=== PATIENT | female | born 2000 | race Caucasian/White ===

== ENCOUNTER 2019-06-24 19:54 | Emergency (ER) | payer OTHER, SELFPAY ==
[2019-05-13 15:46] VITALS: BMI 29.0
[2019-06-24 19:55] VITALS: BP 147/94; PULSE 97; RESP 16; TEMP 36.6; O2SAT 100; BMI 26.5
--- NOTE | 2019-06-24 20:32 | CT_ITS ---
STUDY: CTA HEAD AND NECK WITH CONTRAST REASON FOR EXAM: Female, 19 years old. Dizziness, headache RADIATION DOSAGE (If Supplied By Facility): CTDIvol = ( 28.69 ) mGy, DLP = ( 1340.74 ) mGycm TECHNIQUE: CT angiography was performed with a multi-detector CT scanner. Data acquisition was obtained from the skull base through the vertex following intravenous administration of IV 100mL Isovue-370. MIP images were reconstructed from the axial data set. Post-processing of the angiographic images was performed, with multiplanar reformation and 3D reconstruction. Individualized dose optimization techniques were used for this CT. COMPARISON: No relevant priors. FINDINGS: Normal bilateral petrous carotid arteries. Normal right cavernous carotid artery with a normal supraclinoid bifurcation. Normal left cavernous carotid artery with a normal supraclinoid bifurcation. Normal right A1 segments of the anterior cerebral artery. Normal left A1 segments of the anterior cerebral artery. Normal intact anterior communicating artery (ACOM). Normal bilateral A2 segments of the anterior cerebral arteries. Normal right M1 and M2 segments of the middle cerebral arteries, with a normal M1 bifurcation. Normal left M1 and M2 segments of the middle cerebral arteries, with a normal M1 bifurcation. Normal right posterior communicating artery (PCOM). 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 Normal left vertebral artery. Hypoplastic right vertebral artery. Normal basilar artery with a normal basilar bifurcation. The visualized bilateral superior cerebellar (SCA) arteries are normal. Normal left posterior cerebral artery. 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 There is no demonstrated abnormality of the visualized brain. AORTIC ARCH: Normal visualized aortic arch. Normal origins of the brachiocephalic, left common carotid, and left subclavian arteries. RIGHT CAROTID ARTERIES: Normal right common carotid artery (CCA). Normal right common carotid bulb. Normal origin of the right internal carotid (ICA) artery without a hemodynamically significant stenosis. Normal visualized cervical portion of the right internal carotid artery. Normal origin of the right external carotid artery (ECA). LEFT CAROTID ARTERIES: Normal left common carotid artery (CCA). Normal left common carotid bulb. Normal origin of the left internal carotid (ICA) artery without a hemodynamically significant stenosis. Normal visualized cervical portion of the left internal carotid artery. Normal origin of the left external carotid artery (ECA). VERTEBRAL ARTERIES: Normal left vertebral artery. Diffusely hypoplastic right vertebral artery. 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 No evidence of aneurysm. No vascular dissection. Electronically Signed: Сергей Cardoza DO at 21:46 EST Tel [phone], Service support ,
[2019-06-24 20:55] VITALS: BP 136/99; BP 141/100; BP 143/113; PULSE 100; PULSE 108; PULSE 90
[2019-06-24] MEDS: 0.9% Normal Saline 1,000 ML 1000 ML IV (21:04)
[2019-06-24 21:27] LABS: Absolute Lymphocyte Count 2.75 X10^3/uL (0.83-4.51); Absolute Neutrophil Count 4.7 X10^3/uL (2.0-7.7); Basophil# 0.05 X10^3/uL; Basophil% 0.6 % (0-1); Eosinophil# 0.11 X10^3/uL; Eosinophils% 1.4 % (0-5); Hematocrit 42.3 % (37-47); Lymphocyte # 2.75 X10^3/ul (4.0); Lymphocyte % 33.9 % (19-41); Mean Corp Hgb Conc 33.1 g/dL (32-36); Mean Corpuscular Hgb 28.5 pg (27.0-32.0); Mean Corpuscular Volume 86.2 fL (81-99); Mean Platelet Vol. 10.4 fl (6.2-12.0); Monocyte# 0.49 X10^3/uL; NRBC Flagged by Analyzer 0 % (0-5); Neutrophil # 4.69 X10^3/uL (2.7-7.7); Neutrophil % 57.9 % (47-70); Platelet Count 270 K/mm3 (150-450); RBC Distribution Width CV 12.9 % (11.6-14.6); RBC Distribution Width SD 40.6 fl (35.1-43.9); Red Blood Count 4.91 M/mm3 (4.2-5.4); White Blood Count 8.1 K/mm3 (4.4-11.0)
[2019-06-24 21:51] LABS: Anion Gap 5 (5-15); BUN 13 mg/dL (7-18); Calcium,Total 9.1 mg/dL (8.5-10.1); Chloride 111 mmol/L (98-107); Creatinine, Serum 0.81 mg/dL (0.55-1.02); EST Glomerular Filtration Rate 95 mL/min (>60); Est Glom Filt Rate - Afr Amer 115 mL/min (>60); Estimated Creatinine Clearance 98.86 ml/min; Glucose 88 mg/dL (74-106); Sodium Level 143 mmol/L (136-145)
[2019-06-24 21:52] LABS: Internal QC Validated? YES +Cl - CLEAR BKGD; Pregnancy, Serum, hCG Quali. NEGATIVE Negative
--- NOTE | 2019-06-24 22:48 | ED.VISSUMM ---
- ER Visit Summary Date of Service: 06/24/19 Chief Complaint: [Headache and lightheadedness] History of Present Illness: The patient is a 19 F [presents the emergency department with symptoms that started this morning. Patient states that she was moving some boxes at work they were not very heavy and she developed some discomfort in the back of her neck. Patient states that she became pale and lightheaded and nauseated. Patient at the same time developed a headache that currently she rates a 6 out of 10. Involves the back of her head and is throbbing. She feels a lot of tension in her neck and back of the head. Patient has been intermittently lightheaded throughout the day. Patient does have history of migraines but does not have them very often. Patient's last menstrual period was 2 months ago and she takes an oral contraceptive that causes her to have periods only once every 3 months. There is a family history of brain aneurysm and at her aunt had a brain aneurysm. No history of brain tumors.] Physical Examination: [HEENT-PERRLA, EOMI. Cranial nerves II through XII grossly intact. TMs clear. Mucous membranes moist. No adenopathy. Cardiovascular-regular rate and rhythm without murmur or ectopy Lungs-clear to auscultation, chest wall stable without crepitus or subcu emphysema Abdomen-normoactive bowel sounds, soft, nontender, no rebound or rigidity, no peritoneal signs. Neuro syzw-dlwlln-ctnu and heel amaya testing within normal limits, negative Romberg, negative pronator drift, fundi benign Extremities-intact ?4, normal range of motion, normal pulses, atraumatic] Test Results: [CBC with differential obtained was normal. Chemistries normal. hCG was negative. CT of the head and neck was normal other than she had some hypoplastic vessels noted including proximal segment of the right posterior cerebral artery and left posterior communicating artery. There is no evidence of aneurysm or dissection.] Emergency Department Course and Treatment: [Patient had nebulized tablet she was given a liter of the same fluid bolus. Patient will be treated with Reglan, Benadryl, and Toradol.] Treatment Plan: [Follow up with primary care physician in 3 to 5 days.] Disposition: [Discharged home in stable condition.] Impression: [Cephalgia-suspect migraine Cervical strain] This note was generated with [employer] software. It may contain incorrect words, spelling, and punctuation that were not noted in review of the chart prior to signing ED Disposition - Plan for ED Patient: Referrals: Williams Strickland DO [Primary Care Provider] -
--- NOTE | 2019-06-24 22:52 | ED.DEP ---
ED Disposition - Plan for ED Patient: Instructions: DIZZINESS, Unk Cause, HEADACHE, Unspecified, Neck Sprain/Strain Referrals: Williams Strickland DO [Primary Care Provider] - 3-5 Days
[2019-06-24] MEDS: Ketorolac 30 MG/ML Syringe IV (22:56)
[2019-06-24] MEDS: DiphenhydrAMINE 50 MG/ML Syringe 25 MG IV (22:56)
[2019-06-24] MEDS: Metoclopramide 10 MG/2 ML Vial IV (22:57)
[2019-06-24 23:37] VITALS: BP 134/80; PULSE 80; PULSE 90; RESP 16; O2SAT 97; O2SAT 98
== END 2019-06-25 00:07 | disposition home or self-care (01) ==
LOC: ED 20:42
PROVIDERS: Emergency Provider Emergency Medicine; Family Provider Preventive Medicine Occupational Medicine; PCP Preventive Medicine Occupational Medicine
DX: R51 Headache (principal); S16.1XXA Strain of muscle, fascia and tendon at neck level, initial encounter; X50.3XXA Overexertion from repetitive movements, initial encounter; Y93.89 Activity, other specified; Y99.0 Civilian activity done for income or pay; Z82.49 Family history of ischemic heart disease and other diseases of the circulatory system
CPT/HCPCS: 70496; 70498; 80048; 84703; 85025; 96361; 96374; 96375; 99284; J7030; Q9967; A4216

== ENCOUNTER → 2019-08-13 | Outpatient (CLI) | payer BC, SELFPAY ==
[2019-08-13 12:08] VITALS: BMI 26.5
[2019-08-14 11:13] LABS: Chlamydia Trachomatis by PCR Negative (Negative); Neisserai gonorrhoeae by PCR Negative (Negative); Probe Check PASS; Sample Adequacy Control PASS; Specimen Processing Control PASS
[2019-08-16 13:38] LABS: HPV Reflexed? NOT INDICATED
== END | disposition home or self-care (01) ==
LOC: LABSPEC 12:57
PROVIDERS: PCP Preventive Medicine Occupational Medicine; Referring Provider Nurse Practitioner Women's Health; Visit Provider Nurse Practitioner Women's Health
DX: Z12.4 Encounter for screening for malignant neoplasm of cervix (principal)
CPT/HCPCS: 87491; 87591; 88175; G0145

== ENCOUNTER → 2020-10-07 | Outpatient (CLI) | payer BC, SELFPAY ==
[2020-10-07 09:57] VITALS: BMI 26.2
[2020-10-09 04:09] LABS: Chlamydia By Nucleic Acid AMP Negative (Negative)
[2020-10-09 05:11] LABS: Gonococcus By Nucleic Acid AMP Negative (Negative)
== END | disposition home or self-care (01) ==
LOC: LABSPEC 12:52
PROVIDERS: PCP Preventive Medicine Occupational Medicine; Visit Provider Nurse Practitioner Women's Health
DX: Z11.3 Encounter for screening for infections with a predominantly sexual mode of transmission (principal)
CPT/HCPCS: 87491; 87591

== ENCOUNTER 2021-10-12 09:29 | Outpatient (CLI) | payer BC, SELFPAY ==
[2021-10-12 22:07] LABS: Chlamydia By Nucleic Acid AMP Negative (Negative)
[2021-10-13 14:52] LABS: Gonococcus By Nucleic Acid AMP Negative (Negative)
== END 2021-10-12 23:59 | disposition home or self-care (01) ==
LOC: LABSPEC 09:30
PROVIDERS: PCP Preventive Medicine Occupational Medicine; Referring Provider Nurse Practitioner Women's Health; Visit Provider Nurse Practitioner Women's Health
DX: Z11.3 Encounter for screening for infections with a predominantly sexual mode of transmission (principal)
CPT/HCPCS: 87491; 87591

== ENCOUNTER → 2023-05-11 | Outpatient (CLI) | payer OTHER, SELFPAY ==
[2023-05-16 08:11] LABS: Chlamydia By Nucleic Acid AMP Negative (Negative); Gonococcus By Nucleic Acid AMP Negative (Negative)
== END | disposition home or self-care (01) ==
LOC: LABSPEC 14:26
PROVIDERS: PCP Preventive Medicine Occupational Medicine; Referring Provider Registered Nurse; Visit Provider Registered Nurse
DX: N93.9 Abnormal uterine and vaginal bleeding, unspecified (principal)
CPT/HCPCS: 87491; 87591

== ENCOUNTER → 2023-05-16 | Outpatient (CLI) | payer OTHER, SELFPAY ==
--- NOTE | 2023-05-16 16:51 | US_ITS ---
STUDY: ULTRASOUND TRANSVAGINAL CLINICAL: Female, 23 years old. abnormal uterine bleeding, heavy bleeding TECHNIQUE: Transvaginal COMPARISON: None. FINDINGS: Normal uterine size measuring 9.7 x 5.4 x 4.1 cm in maximal craniocaudal dimension. There are no myometrial masses. Normal endometrial thickness measuring 8 mm. There is a 1.5 cm echogenic mass within the endometrial cavity surrounded by fluid.. Normal uterine cervix. Normal right ovary, measuring 1.8 x 1.6 x 0.9 cm. There are multiple follicles without a dominant cyst. Normal left ovary, measuring 3.1 x 1.3 x 1.4 cm. There are multiple follicles without a dominant cyst. There is a small amount of free fluid in the pelvis. Polycystic ovary disease: No. US/Transvaginal Non- IMPRESSION: Suspect endometrial mass and endometrial fluid. Hysteroscopy may be useful. Electronically Signed: Bryan Montanez MD at 23:26 EDT ,
== END | disposition home or self-care (01) ==
LOC: US 16:51
PROVIDERS: PCP Preventive Medicine Occupational Medicine; Referring Provider Registered Nurse; Visit Provider Registered Nurse
DX: N93.9 Abnormal uterine and vaginal bleeding, unspecified (principal)
CPT/HCPCS: 76830

== ENCOUNTER 2023-07-25 10:43 | Day surgery (SDC) | payer OTHER, SELFPAY ==
[2023-07-24 15:24] LABS: Hematocrit 40.5 % (37-47); Hemoglobin 13.2 g/dL (12.0-15.0); Mean Corp Hgb Conc 32.6 g/dL (32-36); Mean Corpuscular Hgb 27.7 pg (27.0-32.0); Mean Corpuscular Volume 84.9 fL (81-99); Mean Platelet Vol. 10.5 fl (6.2-12.0); Platelet Count 260 K/mm3 (150-450); RBC Distribution Width CV 12.1 % (11.6-14.6); RBC Distribution Width SD 37.3 fl (35.1-43.9); Red Blood Count 4.77 M/mm3 (4.2-5.4); White Blood Count 7.6 K/mm3 (4.4-11.0)
--- NOTE | 2023-07-25 10:51 | PCM.HP.BLA ---
History and Physical Date of Admission: 07/25/23 Intake Vital Signs 05/25/2308:30 07/03/2314:03 07/03/2314:05 Height 5 ft 5 in 5 ft 5 in 5 ft 5 in Weight: 160 lb 8 oz BMI 26.6 BP 140/100 H Intake Visit Reasons: SURGICAL CONSULT [employer] Required: No Is patient in pain?: No Allergies No Known Allergies Allergy (Verified 07/03/23 14:03) Medications etonogestrel 0.12 mg-ethinyl estradiol 0.015 mg/24 hr vaginal ring (NuvaRing) 1 vag ring vaginal Q4W #3 ea 06/05/23 [Rx Confirmed 07/03/23] norethindrone (contraceptive) 0.35 mg tablet 0.35 mg PO DAILY #84 tabs 07/03/23 [Rx Confirmed 07/03/23] Post menopausal: No Patient : No : No PFS Surgical History History of hemorrhoidectomy History of tonsillectomy Family History Sister PCOS (polycystic ovarian syndrome) Social History adopted: No household members: family housing: house current occupational status: employed current occupation: [employer] in [place] current occupational exposures/hazards: No sexually active: Yes Smoking Status: Never smoker second hand exposure: Yes alcohol intake: never substance use type: does not use seatbelt use: always do you feel safe at home: Yes additional social history: single [facility] Details: SONIA TRIPATHI is a 23 year old G0 who presents for a surgical consultation for a uterine mass seen on ultrasound. She uses nuvaring and states that whenever she does anything physical she bleeds. She is hypertensive today and willing to stop her estrogen. ultrasound shows the following: INDINGS: Normal uterine size measuring 9.7 x 5.4 x 4.1 cm in maximal craniocaudal dimension. There are no myometrial masses. Normal endometrial thickness measuring 8 mm. There is a 1.5 cm echogenic mass within the endometrial cavity surrounded by fluid.. Normal uterine cervix. Normal right ovary, measuring 1.8 x 1.6 x 0.9 cm. There are multiple follicles without a dominant cyst. Normal left ovary, measuring 3.1 x 1.3 x 1.4 cm. There are multiple follicles without a dominant cyst. There is a small amount of free fluid in the pelvis. Polycystic ovary disease: No. US/Transvaginal Non- IMPRESSION: Suspect endometrial mass and endometrial fluid. Hysteroscopy may be useful. History 0 Elective abortions Hx Para Spontaneous abortions Hx # Term Pregnancies Ectopic pregnancies Hx # Pregnancies Multiple births # of living children ROS Const ROS Unobtainable: All systems reviewed & are unremarkable except as noted in H Resp Resp: Reports system reviewed and no additional complaints, except as documented; Denies cough GI GI: Reports as per HPI Psych Psych: Reports system reviewed and no additional complaints, except as documented Exam Const General: cooperative, healthy appearing, comfortable and no acute distress Resp Effort & Inspection: normal respiratory effort Skin General: no rashes or lesions noted Psych Appearance: grossly normal Speech and Movement: speech and movement normal Coding Level of Care Code Off vis,est,level 4 Diagnoses Elevated BP without diagnosis of hypertension R03.0 Abnormal uterine bleeding N93.9 Uterine mass N85.8 Assessment and Plan Assessment and Plan (1) Elevated BP without diagnosis of hypertension: Status: Acute Comment: will obtain blood pressure reading outside of office, if remains elevated will change to Progesterone only method. (2) Abnormal uterine bleeding: Status: Acute Comment: gc/ct testing-negative findings tvus- 1.5cm echogenic mass, likely polyp per consult with JV, will arrange surgical consult in office. continuous cycle of nuvaring. weight restriction 15lb until ultrasound obtained. (3) Uterine mass: Status: Acute Medications: New norethindrone (contraceptive) 0.35 mg PO DAILY 84 tabs 0RF Plan After discussing the patient's diagnosis and treatment plan options, patient wishes to proceed with surgical management. I have discussed with the patient the risks, benefits, and alternatives of the procedure which include but are not limited to risks of anesthesia, bleeding, infection, possible damage to bowel, bladder, or surrounding vasculature which could lead to additional surgery to evaluate any complications. Patient agrees to procedure and wishes to proceed. ACOG/uptodate references given for additional information regarding procedure. plan for hysteroscopy, symphion removal of uterine mass, and possible insertion of IUD if this ends up being a polyp. 07/25/2023 <Electronically signed by Tanika Montelongo DO>
[2023-07-25] MEDS: Lactated Ringers 1,000 ML 15 ML IV (11:16)
[2023-07-25 11:17] VITALS: BP 141/100; PULSE 101; RESP 18; TEMP 37.1; O2SAT 100; BMI 25.7
[2023-07-25 11:17] LABS: Internal QC Validated? YES +Cl - CLEAR BKGD; Pregnancy, Urine Negative Negative; Record Kit Lot#,Urine Preg HCG0000667200
--- OUTSIDE RECORDS SUMMARY | 2023-07-25 11:37 | XMS RPT_ITS | CCD ---
Author Name Unknown Address [address] [place] [address] Organization [facility] Care Team Providers Care Criminal Defense Attorney Name Role Phone JACINDA MULLER DO Primary Care Physician [phone] KAREY DUMONT Attending JACINDA Olguin DO Primary Care Unavailable SHARIF GRAVES PA-C Attending UnavailJACINDA Kimball DO Primary Care Unavailable Medications Current Medications Medication Drug Class(es) Dates Sig (Normalized) Sig (Original) Ashlyna oral tablet (2 sources) Start: 12-17-2019 take 1 tablet by mouth once daily Ashlyna oral tablet Dose = 1 tab(s), Oral, qDay, 0 Refill(s) Start Date: 12/17/19 Status: Ordered Hair, skin and Nails Multiple Vitamins with Minerals oral tablet (2 sources) Start: 09-16-2021 take 1 tablet by mouth once daily Hair, skin and Nails Multiple Vitamins with Minerals oral tablet Dose = 1 tab(s), Oral, qDay, 0 Refill(s) Start Date: 09/16/21 Status: Ordered Multivitamin preparation (2 sources) Start: 08-27-2021 take 1 tablet by mouth once daily Multivitamin Dose = 1 tab(s), Oral, Daily, 0 Refill(s) Start Date: 08/27/21 Status: Ordered Probiotic Formula (Bacillus Coagulans) oral capsule (2 sources) Start: 09-16-2021 take 1 capsule by mouth once daily Probiotic Formula (Bacillus Coagulans) oral capsule Dose = 1 cap(s), Oral, qDay, # 30 cap(s), 0 Refill(s) Start Date: 09/16/21 Status: Ordered Problems Problem Classification Problem Date Documented Da te Episodic/Chronic Hemorrhoids (2 sources) Hemorrhoids 08-25-2021 Episodic Other gastrointestinal disor ders (2 sources) Constipation 08-25-2021 Episodic Results Test Name Value Interpretation Reference Range Facil ity Vital Signs Date Time Vital Sign Value Performing Clinician Faci lity 09-20-2021 10:50-0500 Body temperature 97.52 [degF] SKYE ROBLEDO MD [facility] 09-20-2021 10:50-0500 Diastolic blood pressure 93 mm[Hg] SKYE ROBLEDO MD [facility] 09-20-2021 10:50-0500 Heart rate 84 /min SKYE ROBLEDO MD [facility] 09-20-2021 10:50-0500 Mean blood pressure 108 mm[Hg] SKYE ROBLEDO MD [facility] 09-20-2021 10:50-0500 Reason For Taking VItal Signs SKYE ROBLEDO MD [facility] 09-20-2021 10:50-0500 Respiratory rate 16 /min SKYE ROBLEDO MD [facility] 09-20-2021 10:50-0500 Systolic blood pressure 139 mm[Hg] SKYE ROBLEDO MD [facility] 09-20-2021 09:45-0500 Body temperature 97.52 [degF] SKYE ROBLEDO MD [facility] 09-20-2021 09:45-0500 Diastolic blood pressure 83 mm[Hg] SKYE ROBLEDO MD [facility] 09-20-2021 09:45-0500 Heart rate 84 /min SKYE ROBLEDO MD [facility] 09-20-2021 09:45-0500 Mean blood pressure 97 mm[Hg] KSYE ROBLEDO MD [facility] 09-20-2021 09:45-0500 Reason For Taking VItal Signs SKYE ROBLEDO MD [facility] 09-20-2021 09:45-0500 Respiratory rate 16 /min SKYE ROBLEDO MD [facility] 09-20-2021 09:45-0500 Systolic blood pressure 124 mm[Hg] SKYE ROBLEDO MD [facility] 09-20-2021 09:01-0500 Heart rate 80 /min SKYE ROBLEDO MD [facility] 09-20-2021 08:45-0500 Diastolic Blood Pressure NBP 91 1 SKYE ROBLEDO MD [facility] 09-20-2021 08:45-0500 Heart rate 70 /min SKYE ROBLEDO MD [facility] 09-20-2021 08:45-0500 Respiratory rate 16 /min SKYE ROBLEDO MD [facility] 09-20-2021 08:45-0500 Systolic Blood Pressure NBP 127 1 SKYE ROBLEDO MD [facility] 09-20-2021 08:30-0500 Diastolic Blood Pressure NBP 92 1 SKYE ROBLEDO MD [facility] 09-20-2021 08:30-0500 Systolic Blood Pressure NBP 132 1 SKYE ROBLEDO MD [facility] 09-20-2021 08:17-0500 Body temperature 97.52 [degF] SKYE ROBLEDO MD [facility] 09-20-2021 08:17-0500 Diastolic Blood Pressure NBP 71 1 SKYE ROBLEDO MD [facility] 09-20-2021 08:17-0500 Mean blood pressure 79 mm[Hg] SKYE ROBLEDO MD [facility] 09-20-2021 08:17-0500 Systolic Blood Pressure NBP 105 1 SKYE ROBLEDO MD [facility] 09-20-2021 07:55-0500 Body temperature 86.81 [degF] SKYE ROBLEDO MD [facility] 09-20-2021 07:50-0500 Body temperature 90.45 [degF] SKYE ROBLEDO MD [facility] 09-20-2021 07:45-0500 Body temperature 90.75 [degF] SKYE ROBLEDO MD [facility] 09-20-2021 06:25-0500 Body height 165.1 cm SKYE ROBLEDO MD [facility] 09-20-2021 06:25-0500 Body weight 70.7 kg SKYE ROBLEDO MD [facility] 09-20-2021 06:25-0500 Body weight 25.94 kg/m2 SKYE ROBLEDO MD [facility] 09-20-2021 06:25-0500 Diastolic blood pressure 90 mm[Hg] SKYE ROBLEDO MD [facility] 09-20-2021 06:25-0500 Heart rate 78 /min SKYE ROBLEDO MD [facility] 09-20-2021 06:25-0500 Mean blood pressure 103 mm[Hg] SKYE ROBLEDO MD [facility] 09-20-2021 06:25-0500 Systolic blood pressure 130 mm[Hg] SKYE ROBLEDO MD [facility] 09-16-2021 14:37-0500 Body height 165.1 cm SKYE ROBLEDO MD [facility] 09-16-2021 14:37-0500 Body weight 72.7 kg SKYE ROBLEDO MD [facility] Encounters Encounter Date Encounter Type Care Provider Facility Start: 01-24-2023 End: 01-24-2023 ambulatory SHARIF GRAVES PA-C Facility:A Start: 03-18-2022 End: 03-18-2022 ambulatory KAREY PEREZ APRN-[employer]ING [employer]ATE [employer]TER Facility:A Start: 10-05-2021 End: 10-05-2021 Patient encounter procedure SKYE ROBLEDO MD [facility] Start: 09-20-2021 End: 09-20-2021 SAME DAY STAY SKYE ROBLEDO MD [facility] Procedures Date Procedure Procedure Detail Performing Clinician Start: 09-20-2021 Hemorrhoidectomy LEANDRA ROBLEDO MD Immunizations Immunization Date Immunization Notes Care Provider Alton dahl 02-18-2016 meningococcal polysaccharide (groups A, C, Y and W-135) diphtheria toxoid conjugate vaccine (MCV4P) SKYE ROBLEDO MD [facility] 05-02-2011 meningococcal polysaccharide (groups A, C, Y and W-135) diphtheria toxoid conjugate vaccine (MCV4P) SKYE ROBLEDO MD [facility] 05-02-2011 tetanus toxoid, redu augusta diphtheria toxoid, and acellular pertussis vaccine, adsorbed SKYE ROBLEDO MD [facility] 04-07-2003 measles/mumps/rubell a virus vaccine SKYE ROBLEDO MD [facility] 04-07-2003 poliovirus vaccine, inactivated SKYE ROBLEDO MD [facility] 06-16-1999 measles/mumps/rubell a virus vaccine SKYE ROBLEDO MD [facility] 1998 haemophilus influenz ae type b vaccine, HbOC conjugate SKYE ROBLEDO MD [facility] 1998 hepatitis B pediatri c vaccine SKYE ROBLEDO MD [facility] 1998 haemophilus influenz ae type b vaccine, PRP-OMP conjugate SKYE ROBLEDO MD [facility] 1998 poliovirus vaccine, inactivated SKYE ROBLEDO MD [facility] 1998 haemophilus influenz ae type b vaccine, PRP-OMP conjugate SKYE ROBLEDO MD [facility] 1998 poliovirus vaccine, inactivated SKYE ROBLEDO MD [facility] 1998 hepatitis B pediatri c vaccine SKYE ROBLEDO MD [facility] 1998 hepatitis B pediatri c vaccine SKYE ROBLEDO MD [facility] Payers Date Payer Category Payer Unknown [id number] 2000 Unknown [id number] 2000 Unknown [id number] Social History Date Type Detail Facility Start: 12-17-2019 Never smoked t obacco (finding) [facility] Sex Assigned At Female [facility] Discharge instructions 09-20-2021 Note Date & Type Note Facility 09-20-2021 Hospital Discharg e instructions Patient Education 09/20/2021 10:30:17 -[facility] Discharge Instructions Template (04/2018) ([facility]) [place] SAME DAY SURGERY DISCHARGE INSTRUCTIONS PLEASE FOLLOW THE INSTRUCTIONS BELOW MARKED WITH AN X: _x_ Regular Diet: Start with clear liquids, then soup and crackers and gradually add other foods. ___ Drink extra fluids. ___ Special Diet Instructions: ___ ACTIVITY: ___ Avoid stress to suture line. Since you have had an anesthetic, it would be advisable not to drive, drink alcohol, or make major decisions over the next 24 hours. You may require more rest tonight and tomorrow. ___ May resume regular activity as tolerated. ___ Restrict activity as follows: ___ ___ Walk Only ___ ___ Do not go up and down stairs. ___ Do not ride in car until ___ ___ Do not drive car. ___ Do not have sexual intercourse. _x__ No heavy lifting, pushing or straining. _x__ Other: _Follow all written and verbal instructions per Dr. Alcaraz.__ BATHING/SHOWERING: ___ Sponge bathe until office visit. ___ Sitting in tub of warm water may relieve discomfort. ___ May tub bathe _x__ May shower in 48 hours. ___ On day after surgery sit in tub of warm water to soak off dressing. DRESSING: ___ Keep operative area dry and clean for ___ ___ Check the operative area for signs of bleeding. Apply pressure to the bleeding site if necessary and call your physician. ___ Change dressing as necessary using sterile dressing material or bandaid. ___ Reinforce dressing as necessary. ___ Change and care for wound as follows: ___ ___ Wear bra for ___ days following breast surgery for comfort. ___ Change drip pad as needed. ___ Wear scrotal support for comfort. WATCH FOR SIGNS OF INFECTION: (Usually appears 36-48 hours after surgery) Increased temperature (101 degrees Fahrenheit or higher) Redness or swelling Increased pain Foul odor or drainage. If you have any questions, please call your doctor at the number listed on your follow up instructions. Follow all instructions given to you by your physician. Please complete and return the survey you will be receiving in the mail to help us better serve our patients. Form: 1522 ([id number]) R: 10/2309/20/2021 10:30:17 Surgical Procedures for Hemorrhoids, Care After Surgical Procedures for Hemorrhoids, Care After This sheet gives you information about how to care for yourself after your procedure. Your health care provider may also give you more specific instructions. If you have problems or questions, contact your health care provider. What can I expect after the procedure? After the procedure, it is common to have: Rectal pain. Pain when you are having a bowel movement. Slight rectal bleeding. This is more likely to happen with the first bowel movement after surgery. Follow these instructions at home: Medicines Take kvmk-nwf-hzorsrl and prescription medicines only as told by your health care provider. If you were prescribed an antibiotic medicine, use it as told by your health care provider. Do not stop using the antibiotic even if your condition improves. Ask your health care provider if the medicine prescribed to you requires you to avoid driving or using heavy machinery. Use a stool softener or a bulk laxative as told by your health care provider. Eating and drinking Follow instructions from your health care provider about what to eat or drink after your procedure. You may need to take actions to prevent or treat constipation, such as: ?Drink enough fluid to keep your urine pale yellow. ?Take sqxh-kea-fhmgcxt or prescription medicines. ?Eat foods that are high in fiber, such as beans, whole grains, and fresh fruits and vegetables. ?Limit foods that are high in fat and processed sugars, such as fried or sweet foods. Activity Rest as told by your health care provider. Avoid sitting for a long time without moving. Get up to take short walks every 1 2 hours. This is important to improve blood flow and breathing. Ask for help if you feel weak or unsteady. Return to your normal activities as told by your health care provider. Ask your health care provider what activities are safe for you. Do not lift anything that is heavier than 10 lb (4.5 kg), or the limit that you are told, until your health care provider says that it is safe. Do not strain to have a bowel movement. Do not spend a long time sitting on the toilet. General instructions Take warm sitz baths for 15 20 minutes, 2 3 times a day to relieve soreness or itching and to keep the rectal area clean. Apply ice packs to the area to reduce swelling and pain. Do not drive for 24 hours if you were given a sedative during your procedure. Keep all follow-up visits as told by your health care provider. This is important. Contact a health care provider if: Your pain medicine is not helping. You have a fever or chills. You have bad smelling drainage. You have a lot of swelling. You become constipated. You have trouble passing urine. Get help right away if: You have very bad rectal pain. You have heavy bleeding from your rectum. Summary After the procedure, it is common to have pain and slight rectal bleeding. Take warm sitz baths for 15 20 minutes, 2 3 times a day to relieve soreness or itching and to keep the rectal area clean. Avoid straining when having a bowel movement. Eat foods that are high in fiber, such as beans, whole grains, and fresh fruits and vegetables. Take eneg-bvq-kpsmtym and prescription medicines only as told by your health care provider. This information is not intended to replace advice given to you by your health care provider. Make sure you discuss any questions you have with your health care provider. Document Released: 09/22/2004 Document Revised: 12/18/2019 Document Reviewed: 05/21/2019 [employer] Patient Education 2020 [employer] Follow Up Care 09/07/2021 10:32:52 With:SKYE ALCARAZ JR, MD, Surgery Address: [phone] When: Unknown Comments:Please make a follow up appointment if one has not been made. [facility] Evaluation + Plan note Note Date & Type Note Facility Evaluation + Plan note No data available for this section [facility] Hospital Discharge instructions Note Date & Type Note Facility Hospital Discharge instructions No data available for this section [facility] Summary Purpose Family History No Family History Records Found Advance Directives No Advanced Directives Records Found Additional Source Comments INFORMATION SOURCE (unrecogn ized section and content) FOR RECORDS PERTAINING TO PATIENTS WHO ARE OR HAVE BEEN ENROLLED IN A CHEMICAL DEPENDENCY/SUBSTANCEABUSE PROGRAM, SOME INFORMATION MAY BE OMITTED. This clinical summary was aggregated from multiple sources. Caution should be exercised in using it in the provision of clinical care. This summary normalizes information from multiple sources, and as a consequence, information in this document may materially change the coding, format and clinical context of patient data. In addition, data may be omitted in some cases. CLINICAL DECISIONS SHOULD BE BASED ON THE PRIMARY CLINICAL RECORDS. [employer] provides no warranty or guarantee of the accuracy or completeness of information in this document.
--- NOTE | 2023-07-25 12:10 | EMB_PTH ---
PATHOLOGY RESULTS PATIENT: SONIA TRIPATHI LOC: [facility] [place] U#:[id number] AGE/SX: 23/F ROOM: RE07/25/[address]: Dr. Tanika Montelongo DO : 2000 BED: DIS: 07/25/2023 SPEC #: [id number] RECD: 07/26/23 07:26 STATUS: KADI OG #: [id number] MENG: 07/25/23 12:[address]: Tanika Montelongo DEPT: SURGICAL PATHOLOGY RECD BY: Leslie Ashley ENTERED: 07/26/23 07:26 SP TYPE: ENDOM BX/C ERIC DR: MD Dr. Williams Mcbride DO Tissues: Endometrium, NOS Procedures: Surgery Specimen Level IV HEADER OPERATION: Hysteroscopy, D & C Symphion PRE-OP DIAGNOSIS: Abnormal uterine bleeding, uterine mass TISSUE SUBMITTED: Endometrial curettings MICROSCOPIC DIAGNOSIS Endometrium, curettings: Polypoid fragments of benign endocervical tissue with mild chronic inflammation. Rare strips of benign superficial endometrium. Fragments of benign myometrial tissue. AM:vin 07/27/2023 MICROSCOPIC DESCRIPTION Slides are reviewed. GROSS DESCRIPTION Received in fixative is one container labeled with the patient's name and designated endometrial curettings. The specimen consists of multiple irregular fragments of garza soft tissue mixed with mucoid tissue that in aggregate measure 5.5 x 3.0 x 0.2 cm. The entire specimen is submitted in three cassettes. / JACQUELINE:vin 07/26/2023 TC:5 CPT: 33611
--- NOTE | 2023-07-25 12:10 | DCINST_ITS ---
Discharge Instructions Diet Discharge Diet: No restrictions Activity Discharge Activity: Return to Normal Activity, May Shower and May Take a Tub Bath (after 1 week) May resume sexual activity in: 1-2 weeks Weight Bearing Status: Weight bearing as tolerated Lifting Restrictions: none Dressing / Incision Call your doctor if you observe: Fever of 101 or Higher, Using more than 1 pad per hour, Shortness of breath and Uncontrolled pain Follow Up Care Please Follow Up With: Tanika Montelongo DO When: Call [phone] to schedule appointment. Test Results: Test results from this visit will be discussed in further detail at your follow- up appointment, if applicable. Discharge Plan Admission Primary Reason for Your Visit: husteroscopy D&C Attending Provider: Tanika Montelongo Primary Care Provider: Williams Strickland Consulting Providers: Cornell Epstein Discharge Orders/Prescriptions Prescriptions: New naproxen 500 mg tablet 500 mg PO BID PRN (Reason: pain) Qty: 20 0RF Continued norethindrone (contraceptive) [Sharobel] 0.35 mg tablet 0.35 mg PO DAILY Discontinued etonogestrel-ethinyl estradiol [NuvaRing] 0.12-0.015 mg/24 hr ring 1 vag ring vaginal Q4W Qty: 3 5RF Rx Instructions: leave in place for 3 weeks of a 4-week cycle Referrals / Follow Up: Williams Strickland DO [Primary Care Provider] - Disposition Disposition (needs filled in before D/C Order can be placed): Home, Self Care
[2023-07-25] MEDS: Lidocaine 1% (20 ml mdv) 20 ML Vial (12:35)
--- NOTE | 2023-07-25 12:44 | OP.PCM_ITS ---
Problems Associated Problem List Diagnoses (1) Uterine mass: (2) Abnormal uterine bleeding: Report of Operation Date of Procedure: 07/25/23 Pre-Operative Diagnosis: abnormal uterine bleeding, ultrasound finding of endometrial mass Post-Operative Diagnosis: abnormal uterine bleeding, ultrasound finding of endometrial mass Surgery/Procedure Performed:: hysteroscopy dilation and symphion guided curettage Description of Surgical Findings:: small polyps around the tubal ostia bilaterally, cervicouterine junction polyp like structures. Surgeon: Tanika Montelongo windows 7 deployment lead: None Type of Anesthesia: MAC/Supplemental/Local Anesthesiologist: Jef Farias Specimen's removed: endometrial curettings Drains: none Estimated Blood Loss (mL): 5cc Description of Procedure: Patient was prepped and draped in a normal sterile fashion under MAC anesthesia. A weighted speculum was placed in the vagina and the anterior lip of the cervix was grasped with a single-tooth tenaculum. A paracervical block was placed with 1% lidocaine. Cervix was progressively dilated to allow passage of a 5 mm hysteroscope. The lining was fully visualized and noted to have some small polyps surrounding both tubal ostia and at the uterocervical junctio . Uterine sounded to 9 cm. Curettage was performed using the symphion device and the specimen was sent to pathology. All instruments were removed from the vagina and excellent hemostasis was noted. Patient was awoken and taken to recovery in stable condition. Procedure Start Time: 12:30 Procedure Stop Time: 12:42 Complications none Admit VTE Documentation VTE Mechan Device Prophylaxis: SCD's VTE Pharm Prophylaxis ordered?: No Multi Select Codes Urinary/Genital Urinary/Genital CPT Codes: 51449 Hysteroscopy,EMC, Polypectomy
[2023-07-25 12:56] VITALS: BP 133/99; BP 141/100; PULSE 81; RESP 16; TEMP 36.8; O2SAT 100
[2023-07-25 13:00] VITALS: BP 123/109; BP 141/100; PULSE 84; RESP 16; O2SAT 100
[2023-07-25 13:16] VITALS: BP 119/99; BP 141/100; PULSE 89; RESP 16; TEMP 36.3; O2SAT 93
[2023-07-25 13:55] VITALS: BP 141/100
== END 2023-07-25 13:57 | disposition home or self-care (01) ==
LOC: SDC 10:44 → AC 10:45
PROVIDERS: Anesthesiology; PCP Preventive Medicine Occupational Medicine; Referring Provider Obstetrics & Gynecology; Visit Provider Obstetrics & Gynecology
PROC: 0UB98ZZ Excision of Uterus, Via Natural or Artificial Opening Endoscopic (ICD-10-PCS; CPT 58558; principal; 2023-07-25 11:55)
DX: N85.01 Benign endometrial hyperplasia (principal); N93.9 Abnormal uterine and vaginal bleeding, unspecified; R03.0 Elevated blood-pressure reading, without diagnosis of hypertension
CPT/HCPCS: 58558; 00952; 36415; 81025; 85027; 86850; 86900; 86901; 88305; J7120; J2405

== ENCOUNTER → 2023-11-30 | Outpatient (CLI) | payer OTHER, SELFPAY ==
--- NOTE | 2023-11-30 14:18 | US_ITS ---
INDICATION: dating EXAMINATION: Ultrasound US OB Transvaginal TECHNIQUE: Transvaginal (for optimal evaluation of the adnexa) pelvic ultrasound was performed. Grayscale, spectral waveform, and color flow Doppler evaluation of the adnexa. COMPARISON: None. LMP: [Unknown Beta-hCG: Unknown FINDINGS: UTERUS: 10.5 x 6.8 x 5.8 cm. RIGHT OVARY: 3.4 x 1.7 x 1.3 cm. Normal. LEFT OVARY: 3.5 x 2.7 x 2.2 cm. Normal. FREE FLUID: None. INTRAUTERINE GESTATIONAL SAC: Single. Mean sac diameter 2.4 cm. YOLK SAC: Identified POLE: Identified CRL 1.1 cm. ESTIMATED GESTATION AGE: 7 weeks 2 days. HEART MOTION: 127 bpm. PLACENTA: Not visualized due to age. SUBCHORIONIC HEMORRHAGE: None. AMNIOTIC FLUID: Qualitatively normal. US/Transvaginal w/Preg US IMPRESSION: Single live intrauterine . Estimated gestational age is 7 weeks 2 days with SUREKHA 07/16/2024. Electronically Signed: Artur Rojas MD at 23:41 EDT ,
== END | disposition home or self-care (01) ==
LOC: US 14:17
PROVIDERS: PCP Preventive Medicine Occupational Medicine; Referring Provider Obstetrics & Gynecology; Visit Provider Obstetrics & Gynecology
DX: Z34.90 Encounter for supervision of normal pregnancy, unspecified, unspecified trimester (principal)
CPT/HCPCS: 76817

== ENCOUNTER → 2023-12-20 | Outpatient (CLI) | payer OTHER, SELFPAY ==
[2023-12-20 16:34] LABS: Absolute Lymphocyte Count 2.21 X10^3/uL (0.83-4.51); Absolute Neutrophil Count 4.9 X10^3/uL (2.0-7.7); Basophil# 0.04 X10^3/uL; Basophil% 0.5 % (0-1); Eosinophil# 0.14 X10^3/uL; Eosinophils% 1.8 % (0-5); Hematocrit 36.2 % (37-47); Hemoglobin 12.2 g/dL (12.0-15.0); Lymphocyte # 2.21 X10^3/ul (0.83-4.51); Lymphocyte % 28.3 % (19-41); Mean Corp Hgb Conc 33.7 g/dL (32-36); Mean Corpuscular Hgb 28.2 pg (27.0-32.0); Mean Corpuscular Volume 83.6 fL (81-99); Mean Platelet Vol. 10.2 fl (6.2-12.0); Monocyte# 0.45 X10^3/uL; Monocyte% 5.8 % (0-10); NRBC Flagged by Analyzer 0 % (0-5); Neutrophil # 4.94 X10^3/uL (2.7-7.7); Neutrophil % 63.2 % (47-70); Platelet Count 224 K/mm3 (150-450); RBC Distribution Width CV 13.5 % (11.6-14.6); RBC Distribution Width SD 41.5 fl (35.1-43.9); Red Blood Count 4.33 M/mm3 (4.2-5.4); White Blood Count 7.8 K/mm3 (4.4-11.0)
[2023-12-20 18:11] LABS: HIV - WCH Non-Reactive (Nonreactive); Hepatitis B Surface Antigen Non-Reactive (Nonreactive); Hepatitis C Antibody Non-Reactive (Nonreactive); Rubella IgG Reactive (Nonreactive); Syphilis Antibodies Non-reactive
[2023-12-23 06:10] LABS: Chlamydia By Nucleic Acid AMP Negative (Negative); Gonococcus By Nucleic Acid AMP Negative (Negative)
[2023-12-26 17:11] LABS: HPV Reflexed? NOT INDICATED
== END | disposition home or self-care (01) ==
PROVIDERS: PCP Preventive Medicine Occupational Medicine; Referring Provider Obstetrics & Gynecology; Visit Provider Obstetrics & Gynecology
DX: Z12.4 Encounter for screening for malignant neoplasm of cervix (principal); O09.90 Supervision of high risk pregnancy, unspecified, unspecified trimester; Z3A.00 Weeks of gestation of pregnancy not specified; Z82.79 Family history of other congenital malformations, deformations and chromosomal abnormalities; Z83.49 Family history of other endocrine, nutritional and metabolic diseases
CPT/HCPCS: 36415; 81220; 85025; 86703; 86762; 86780; 86803; 86850; 86900; 86901; 87086; 87088; 87340; 87491; 87591; 88175; G0145

== ENCOUNTER → 2024-03-08 | Outpatient (CLI) | payer OTHER, SELFPAY ==
--- NOTE | 2024-03-08 08:03 | US_ITS ---
HISTORY: anatomy scan. TECHNIQUE: Transabdominal pelvic ultrasound was performed. 114 images. COMPARISON: 11/30/2023. FINDINGS: INTRAUTERINE GESTATION(s): Single. PRESENTATION: Cephalic. HEART MOTION: 137 bpm. PLACENTA: Posterior, grade 0. No placenta previa. CERVIX: 4.2 cm long and closed. AMNIOTIC FLUID: Maximum vertical pocket 3.5 x 4.1 cm. biometry- BIPARIETAL DIAMETER: 5.1 cm, corresponding to 21 weeks 3 days. HEAD CIRCUMFERENCE: 19 cm, corresponding to 21 weeks 2 days. ABDOMINAL CIRCUMFERENCE: 15.9 cm, corresponding to 21 weeks 0 days. FEMUR LENGTH: 3.5 cm, corresponding to 21 weeks 1 day. ESTIMATED GESTATIONAL AGE: 21 weeks 1 day. ESTIMATED DUE DATE (SUREKHA): 07/18/2024. ESTIMATED WEIGHT: 403 g corresponding to 30th percentile ANATOMY: Anterior and posterior cranial fossa, nose/lips, facial profile, spine, bilateral upper and lower extremities, four-chamber heart, cord insertion, stomach, kidneys, and bladder visualized. IMPRESSION: Single living intrauterine with an estimated gestational age of 21 weeks 1 day. Unremarkable anatomic survey. Electronically Signed: Effie Jorge MD at 12:47 EDT , HISTORY: anatomy scan. TECHNIQUE: Transvaginal pelvic ultrasound was performed. 114 images. COMPARISON: 11/30/2023. FINDINGS: INTRAUTERINE GESTATION(s): Single. PRESENTATION: Cephalic. HEART MOTION: 137 bpm. PLACENTA: Posterior, grade 0. No placenta previa. CERVIX: 4.2 cm long and closed. AMNIOTIC FLUID: Maximum vertical pocket 3.5 x 4.1 cm. biometry- BIPARIETAL DIAMETER: 5.1 cm, corresponding to 21 weeks 3 days. HEAD CIRCUMFERENCE: 19 cm, corresponding to 21 weeks 2 days. ABDOMINAL CIRCUMFERENCE: 15.9 cm, corresponding to 21 weeks 0 days. FEMUR LENGTH: 3.5 cm, corresponding to 21 weeks 1 day. ESTIMATED GESTATIONAL AGE: 21 weeks 1 day. ESTIMATED DUE DATE (SUREKHA): 07/18/2024. ESTIMATED WEIGHT: 403 g corresponding to 30th percentile ANATOMY: Anterior and posterior cranial fossa, nose/lips, facial profile, spine, bilateral upper and lower extremities, four-chamber heart, cord insertion, stomach, kidneys, and bladder visualized. US/OB Anatomy w/ Transvaginal
== END | disposition home or self-care (01) ==
PROVIDERS: PCP Preventive Medicine Occupational Medicine; Referring Provider Obstetrics & Gynecology; Visit Provider Obstetrics & Gynecology
DX: O09.90 Supervision of high risk pregnancy, unspecified, unspecified trimester (principal)
CPT/HCPCS: 76805; 76817

== ENCOUNTER → 2024-04-23 | Outpatient (CLI) | payer OTHER, SELFPAY ==
[2024-04-23 16:08] LABS: Absolute Neutrophil Count 8.9 X10^3/uL (2.0-7.7); Basophil# 0.06 X10^3/uL; Basophil% 0.5 % (0-1); Eosinophil# 0.12 X10^3/uL; Hematocrit 33.7 % (37-47); Hemoglobin 11.3 g/dL (12.0-15.0); Lymphocyte % 17.1 % (19-41); Mean Corp Hgb Conc 33.5 g/dL (32-36); Mean Corpuscular Hgb 29.7 pg (27.0-32.0); Mean Corpuscular Volume 88.7 fL (81-99); Mean Platelet Vol. 10.2 fl (6.2-12.0); Monocyte# 0.55 X10^3/uL; Monocyte% 4.7 % (0-10); NRBC Flagged by Analyzer 0 % (0-5); Neutrophil # 8.88 X10^3/uL (2.7-7.7); Neutrophil % 75.9 % (47-70); Platelet Count 223 K/mm3 (150-450); RBC Distribution Width SD 42.2 fl (35.1-43.9); White Blood Count 11.7 K/mm3 (4.4-11.0)
[2024-04-23 16:34] LABS: Glucose Challenge Gest 1H 50g 108 mg/dL (70-140)
[2024-04-23 17:04] LABS: HIV - WCH Non-Reactive (Nonreactive); Syphilis Antibodies Non-reactive
== END | disposition home or self-care (01) ==
LOC: LABSPEC 15:27
PROVIDERS: PCP Preventive Medicine Occupational Medicine; Referring Provider Obstetrics & Gynecology; Visit Provider Obstetrics & Gynecology
DX: O09.90 Supervision of high risk pregnancy, unspecified, unspecified trimester (principal); O26.899 Other specified pregnancy related conditions, unspecified trimester; Z67.91 Unspecified blood type, Rh negative; Z13.1 Encounter for screening for diabetes mellitus; Z3A.00 Weeks of gestation of pregnancy not specified
CPT/HCPCS: 36415; 82950; 85025; 86703; 86780; 86850; 86900; 86901

== ENCOUNTER → 2024-06-19 | Outpatient (CLI) | payer OTHER, SELFPAY | END | disposition home or self-care (01) | LOC: LABSPEC 16:26 | PROVIDERS: PCP Preventive Medicine Occupational Medicine; Referring Provider Obstetrics & Gynecology; Visit Provider Obstetrics & Gynecology | DX: O09.93 Supervision of high risk pregnancy, unspecified, third trimester (principal); Z3A.00 Weeks of gestation of pregnancy not specified | CPT/HCPCS: 87077; 87081; 87186 ==

== ENCOUNTER 2024-07-23 19:12 | Inpatient (IN) | payer OTHER, SELFPAY ==
[2024-07-23 19:10] VITALS: BMI 35.6
[2024-07-23 19:34] VITALS: BP 121/72; BP 128/66; PULSE 81; PULSE 91; RESP 18; TEMP 37; O2SAT 98
[2024-07-23 20:14] LABS: Absolute Lymphocyte Count 2.23 X10^3/uL (0.83-4.51); Basophil# 0.04 X10^3/uL; Basophil% 0.3 % (0-1); Eosinophil# 0.09 X10^3/uL; Eosinophils% 0.7 % (0-5); Hematocrit 31.8 % (37-47); Hemoglobin 10.5 g/dL (12.0-15.0); Lymphocyte # 2.23 X10^3/ul (0.83-4.51); Mean Corpuscular Hgb 27.6 pg (27.0-32.0); Mean Corpuscular Volume 83.5 fL (81-99); Mean Platelet Vol. 11.3 fl (6.2-12.0); Monocyte% 4.6 % (0-10); NRBC Flagged by Analyzer 0 % (0-5); Neutrophil # 10.01 X10^3/uL (2.7-7.7); Neutrophil % 76.6 % (47-70); Platelet Count 207 K/mm3 (150-450); RBC Distribution Width CV 13.6 % (11.6-14.6); Red Blood Count 3.81 M/mm3 (4.2-5.4); White Blood Count 13.1 K/mm3 (4.4-11.0)
[2024-07-23] MEDS: miSOPROStol 25 MCG TABLET PO (20:48)
[2024-07-23 21:06] VITALS: BP 121/72; PULSE 81; RESP 15; TEMP 36.7; O2SAT 98
[2024-07-23 22:32] LABS: Syphilis Antibodies Non-reactive
[2024-07-24] VITALS (40 sets, daily range): BP systolic 107–142; BP diastolic 61–95; PULSE 64–102; RESP 14–20; TEMP 36.1–36.8; O2SAT 91–100
[2024-07-24] MEDS: Lactated Ringers 1,000 ML 999 ML IV (01:07)
[2024-07-24] MEDS: fentaNYL-bupivacaine (epidural) 100 ML BAG EPIDURAL ×2 (01:40→07:03)
[2024-07-24] MEDS: Oxytocin 15 Units/NS 250ml 15 UNITS/250 ML IV.SOLN 2 UNITS IV (01:50)
[2024-07-24] MEDS: Lactated Ringers 1,000 ML 50 ML IV (02:13)
[2024-07-24] MEDS: Ondansetron 4 MG/2 ML Vial IV ×2 (03:07→08:26)
[2024-07-24] MEDS: Penicillin G Pot 5,000,000 UNITS in 0.9% Normal Saline (100mL MB+) 100 ML 150 UNITS IV (03:08)
[2024-07-24] MEDS: Penicillin G 3,000,000 Units 50 ML 100 UNITS IV (07:09)
[2024-07-24] MEDS: Lactated Ringers 1,000 ML 200 ML IV (08:00)
[2024-07-24] MEDS: Calcium Carbonate 500 MG Tablet 1000 MG PO (09:03)
--- NOTE | 2024-07-24 09:55 | HP.PCM.OB_ITS ---
HPI - General General Date of Admission: 07/23/24 HPI Narrative SONIA TRIPATHI, is a 24 F who presents for IOL secondary to postdates no vb lof good fm no regular ctx Maternal Data Information SUREKHA Calculator Estimated Delivery Date Method Current WG Current Estimate 07/16/24 Ultrasound #1 41w 1d PFSH PFSH Medical History Hypertension Non-smoker Uterine mass Abnormal uterine bleeding Home Medications ?Medication ?Instructions ?Recorded ?Last Taken ?Type PNV 153-FA 400 mcg-om3 35 mg-dha tab PO 12/15/23 Unknown History 25 mg-epa 5 mg-fish oil chew tablet Hydrocortisone 2.5%/lidocaine 5% #30 ea 03/25/24 Unknown Rx suppository (cmpd) hydrocortisone 2.5 % topical cream 1 applic HI QD-BID PRN hemorrhoids 03/25/24 Unknown Rx with perineal applicator #30 grams (Proctozone-HC) promethazine 12.5 mg tablet 12.5 mg PO Q6H PRN nausea and 06/03/24 Unknown Rx vomiting #10 tabs Allergy/AdvReac Type Severity Reaction Status Date / Time acetaminophen (From Vicodin) AdvReac Intermediate Nausea/Vom/ Verified 07/16/24 14:47 Diarrhea hydrocodone (From Vicodin) AdvReac Intermediate Nausea/Vom/ Verified 07/16/24 14:47 Diarrhea Family History Sister PCOS (polycystic ovarian syndrome) Surgical History Status post dilation and curettage [place] teeth extracted Status post hysteroscopy (~07/25/23) History of hemorrhoidectomy History of tonsillectomy Social History adopted: No household members: significant other housing: house current occupational status: employed current occupation: [employer] in [place] current occupational exposures/hazards: No pets and animals: Yes (Avoid litterbox) pets and animals: cat(s) and dog(s) history of recent travel: No sexually active: Yes Smoking Status: Never smoker alcohol intake: never substance use type: does not use well-balanced diet: daily or most days caffeine: No eating out: 1-3 times/week during the past year weight has: remained stable what type of physical activity do you participate in: none jarrell/sabianism: Mu-Ism seatbelt use: always do you feel safe at home: Yes additional social history: Javid Significant other History 1 Elective abortions Hx Para 0 Spontaneous abortions Hx # Term Pregnancies Ectopic pregnancies Hx # Pregnancies Multiple births # of living children Visit Details Expected Delivery Route/Plan Labor Preferences- CB/BF classes: discussed, considering labor support person: Javid labor intervention preferences: [] pain management options preferred: [] cut cord/dad catch: [] : [] PP control planned: [] discussed possible routes of delivery and associated risks: [] special requests: [] Plans Covid status: [] Flu vaccine: declined Tdap vaccine: declined Rhogam: 04/23 LARC form signed: declined movement and labor precautions reviewed. Problem list reviewed and updated with the most current plan of care details and appropriate orders placed. Relevant counseling for the gestational age provided. Continue routine care and follow up unless otherwise noted in visit notes/problem list details OB Flowsheet Initial Weight: Not Recorded Date -?-?-?-?-?-?-?-?-?-?-?-?- EGA Weight BP Urine Prot -?-?-?--?-?-?-?-?-?-?-?-?- Glucose FHR FuHt Pres Dilation -?-?-?-?-?-?-?-?-?--?-?-?- Effaced St Visit Note 12/20/23 -?-?-?-?-?-?-?-?-?-?-?-?- 10w 1d 167 lb 119/86 -?-?-?-?-?-?-?-?-?-?-?-?- 167 -?-?-?-?-?-?-?-?-?-?-?-?- SM- CRL 3 cm con s with LMP 01/23/24 -?-?-?-?-?-?-?-?-?-?-?-?- 15w 0d 174 lb 118/77 -?-?-?-?-?-?-?-?-?-?-?-?- 145 -?-?-?-?-?-?-?-?-?-?-?-?- SM- no vb crampi ng boy! 03/01/24 -?-?-?-?-?-?-?-?-?-?-?-?- 20w 3d 176 lb 8 oz 131/90 Nega tive -?-?-?-?-?-?-?-?-?-?-?-?- Negative 168 -?-?-?-?-?-?-?-?-?-?-?-?- KW- no vb/crampi ng. good fm. concerns with large hemorrhoids, not yet thrombosed but has had to have surgical intervention in the past. Has tried home treatments with minimal relief, requesting surgical consult. 03/27/24 -?-?-?-?-?-?-?-?--?-?-?-?- 24w 1d 187 lb 120/81 Negative -?-?-?-?-?-?-?-?-?-?-?-?- Negative 146 25 -?-?-?-?-?-?-?-?-?-?-?-?- JV- no lof, vagi nal bleeding, and ++ FM. plan rhogam and glucola. 04/23/24 -?-?-?-?-?-?-?-?-?-?-?-?- 28w 0d 192 lb 132/87 -?-?-?-?-?-?-?-?-?-?-?-?- 140 29 -?-?-?-?--?-?-?-?-?-?-?-?- SM- SM- no vb lof good fm no reg ualr ctx labs drawn 05/08/24 -?-?-?-?-?-?-?-?-?-?-?-?- 30w 1d 195 lb 127/81 Negative -?-?-?-?-?-?-?-?-?-?--?-?- Negative -?-?-?-?-?-?-?-?-?-?-?-?- SM- no vb llof g ood fm no regular ctx 05/21/24 -?-?-?-?-?-?-?-?-?-?-?-?- 32w 0d 198 lb 8 oz 117/84 Nega tive -?-?-?-?-?-?-?-?-?-?-?-?- Negative 140 32 -?-?-?-?-?-?-?-?-?-?-?-?- KW- no vb/lof/ct x. good fm. some dizziness and lightheadedness at work- compression hose 06/03/24 -?-?-?-?-?-?-?-?-?-?-?-?- 33w 6d 202 lb 4 oz 118/82 Nega tive -?-?-?-?-?-?-?-?-?-?-?-?- Negative 146 34 -?-?-?-?-?-?-?-?-?-?-?-?- MH-No VB, LOF. G ood FM. Has had cramping and nausea last couple of days. No vomiting, fever, diarrhea. More fatigue. Reassured. Phenergan, force fluids an d rest. Reviewed S&S PTL, etc to call 06/19/24 -?-?-?-?-?-?-?-?-?-?-?-?- 36w 1d 209 lb 4 oz 128/84 -?-?-?-?-?-?-?-?-?-?-?-?- 135 38 Cephalic 0.5 -?-?-?-?-?-?-?-?-?-?-?-?- SM- SM- no vb lof good fm nor eu lar ctx gbs done growth US ordered 06/26/24 -?-?-?-?-?-?-?-?-?-?-?-?- 37w 1d 214 lb 4 oz 128/85 Nega tive -?-?-?-?-?-?-?-?-?-?-?-?- Negative 140 37 Cephalic 0 .5 -?-?-?-?-?-?-?-?-?-?-?-?- KV- no lof, vagi nal bleeding, or dec fm. ultrasound never called her about her scan. recommend that she call them tomorrow. 07/01/24 -?-?-?-?-?-?-?-?-?-?-?-?- 37w 6d 212 lb 114/81 Negative -?-?-?-?-?-?-?-?-?-?-?-?- Negative 140 37 Cephalic 1 -?-?-?-?-?-?-?-?-?-?-?-?- 50 -2 KW- no vb/ lof/ ctx. good fm. 07/08/24 -?-?-?-?-?-?-?-?-?-?-?-?- 38w 6d 214 lb 123/85 Negative -?-?-?-?-?-?-?-?-?-?-?-?- Negative 125 38 Cephalic 1 -?-?-?-?-?-?-?-?-?-?-?-?- SM- no vb lof go od fm no regular ctx 07/16/24 -?-?-?-?-?-?-?-?-?-?-?-?- 40w 0d 210 lb 6 oz 122/90 Nega tive -?-?-?-?-?-?-?-?-?-?-?-?- Negative 125 39 Cephalic 1 -?-?-?-?-?-?-?-?-?-?-?-?- 40 -2 KW- no vb/ lof/ctx. good fm. cytotec IOL set up for 41 weeks. Vital Signs Vital Signs Vital Signs: 07/23/24 19:34 07/23/24 19:34 07/23/24 19:34 Temperature Temperature Source Temporal Pulse Rate 81 Respiratory Rate Blood Pressure 121/72 H BP Systolic 121 BP Diastolic 72 Pulse Ox 07/23/24 19:34 07/23/24 19:34 07/23/24 19:34 Temperature 98.6 F Temperature Source Pulse Rate Respiratory Rate 18 Blood Pressure BP Systolic BP Diastolic Pulse Ox 98 07/23/24 19:34 07/23/24 19:34 07/23/24 19:34 Temperature Temperature Source Temporal Pulse Rate 91 Respiratory Rate Blood Pressure 128/66 H BP Systolic 128 BP Diastolic 66 Pulse Ox 07/23/24 19:34 07/23/24 19:34 07/23/24 19:34 Temperature 98.6 F Temperature Source Pulse Rate Respiratory Rate 18 Blood Pressure BP Systolic BP Diastolic Pulse Ox 98 07/23/24 19:34 07/23/24 19:34 07/23/24 19:34 Temperature Temperature Source Temporal Pulse Rate 91 Respiratory Rate Blood Pressure 128/66 H BP Systolic 128 BP Diastolic 66 Pulse Ox 07/23/24 19:34 07/23/24 19:34 07/23/24 19:34 Temperature 98.6 F Temperature Source Pulse Rate Respiratory Rate 18 Blood Pressure BP Systolic BP Diastolic Pulse Ox 98 07/23/24 21:06 07/23/24 21:06 07/23/24 21:06 Temperature Temperature Source Temporal Pulse Rate 81 Respiratory Rate Blood Pressure 121/72 H BP Systolic 121 BP Diastolic 72 Pulse Ox 07/23/24 21:06 07/23/24 21:06 07/23/24 21:06 Temperature 98.0 F Temperature Source Pulse Rate Respiratory Rate 15 Blood Pressure BP Systolic BP Diastolic Pulse Ox 98 07/24/24 01:22 07/24/24 01:22 07/24/24 01:22 Temperature Temperature Source Pulse Rate 76 Respiratory Rate Blood Pressure 138/87 H BP Systolic 138 BP Diastolic 87 Pulse Ox 95 07/24/24 01:23 07/24/24 01:23 07/24/24 01:23 Temperature 97.5 F L Temperature Source Temporal Pulse Rate Respiratory Rate 20 H Blood Pressure BP Systolic BP Diastolic Pulse Ox 07/24/24 01:23 07/24/24 01:23 07/24/24 01:24 Temperature 97.5 F L Temperature Source Pulse Rate 76 Respiratory Rate 20 H Blood Pressure BP Systolic BP Diastolic Pulse Ox 07/24/24 01:24 07/24/24 01:27 07/24/24 01:27 Temperature Temperature Source Pulse Rate 95 Respiratory Rate Blood Pressure BP Systolic BP Diastolic Pulse Ox 91 100 07/24/24 01:28 07/24/24 01:28 07/24/24 01:28 Temperature Temperature Source Pulse Rate 98 Respiratory Rate 19 H Blood Pressure 142/95 H BP Systolic 142 BP Diastolic 95 Pulse Ox 07/24/24 01:32 07/24/24 01:32 07/24/24 01:33 Temperature Temperature Source Pulse Rate 74 Respiratory Rate Blood Pressure 129/83 H BP Systolic 129 BP Diastolic 83 Pulse Ox 100 07/24/24 01:33 07/24/24 01:33 07/24/24 01:38 Temperature Temperature Source Pulse Rate 72 Respiratory Rate 16 15 Blood Pressure BP Systolic BP Diastolic Pulse Ox 07/24/24 01:39 07/24/24 01:39 07/24/24 01:40 Temperature Temperature Source Pulse Rate 70 77 Respiratory Rate Blood Pressure 114/73 BP Systolic 114 BP Diastolic 73 Pulse Ox 07/24/24 01:40 07/24/24 01:43 07/24/24 01:43 Temperature Temperature Source Pulse Rate 77 Respiratory Rate Blood Pressure 115/67 BP Systolic 115 BP Diastolic 67 Pulse Ox 99 07/24/24 01:43 07/24/24 01:45 07/24/24 01:45 Temperature Temperature Source Pulse Rate 89 Respiratory Rate 17 Blood Pressure BP Systolic BP Diastolic Pulse Ox 99 07/24/24 01:48 07/24/24 01:49 07/24/24 01:49 Temperature Temperature Source Pulse Rate 75 Respiratory Rate 14 Blood Pressure 124/79 H BP Systolic 124 BP Diastolic 79 Pulse Ox 07/24/24 01:50 07/24/24 01:50 07/24/24 01:53 Temperature Temperature Source Pulse Rate 64 Respiratory Rate Blood Pressure 107/61 BP Systolic 107 BP Diastolic 61 Pulse Ox 99 07/24/24 01:53 07/24/24 01:53 07/24/24 01:55 Temperature Temperature Source Pulse Rate 75 69 Respiratory Rate 16 Blood Pressure BP Systolic BP Diastolic Pulse Ox 07/24/24 01:55 07/24/24 01:57 07/24/24 01:58 Temperature Temperature Source Pulse Rate Respiratory Rate 19 H Blood Pressure 116/69 BP Systolic 116 BP Diastolic 69 Pulse Ox 98 07/24/24 01:58 07/24/24 02:42 07/24/24 02:42 Temperature Temperature Source Pulse Rate 95 67 Respiratory Rate Blood Pressure 119/64 BP Systolic 119 BP Diastolic 64 Pulse Ox 07/24/24 02:42 07/24/24 02:43 07/24/24 02:43 Temperature Temperature Source Temporal Pulse Rate Respiratory Rate 16 Blood Pressure BP Systolic BP Diastolic Pulse Ox 99 07/24/24 02:43 07/24/24 03:49 07/24/24 03:49 Temperature 97.5 F L Temperature Source Pulse Rate 74 Respiratory Rate Blood Pressure 123/72 H BP Systolic 123 BP Diastolic 72 Pulse Ox 07/24/24 03:49 07/24/24 03:49 07/24/24 03:49 Temperature Temperature Source Temporal Pulse Rate Respiratory Rate 18 Blood Pressure BP Systolic BP Diastolic Pulse Ox 100 07/24/24 03:49 07/24/24 05:12 07/24/24 05:12 Temperature 97.3 F L Temperature Source Pulse Rate 87 Respiratory Rate Blood Pressure 121/77 H BP Systolic 121 BP Diastolic 77 Pulse Ox 07/24/24 05:12 07/24/24 05:12 07/24/24 05:12 Temperature Temperature Source Temporal Pulse Rate 102 H Respiratory Rate 18 Blood Pressure BP Systolic BP Diastolic Pulse Ox 07/24/24 05:12 07/24/24 05:12 07/24/24 06:10 Temperature 98.0 F Temperature Source Pulse Rate Respiratory Rate Blood Pressure 116/67 BP Systolic 116 BP Diastolic 67 Pulse Ox 100 07/24/24 06:10 07/24/24 06:10 07/24/24 06:10 Temperature Temperature Source Pulse Rate 67 65 Respiratory Rate Blood Pressure BP Systolic BP Diastolic Pulse Ox 98 07/24/24 06:10 07/24/24 06:10 07/24/24 06:10 Temperature 97.7 F L Temperature Source Temporal Pulse Rate Respiratory Rate 17 Blood Pressure BP Systolic BP Diastolic Pulse Ox 07/24/24 07:18 07/24/24 07:18 07/24/24 07:18 Temperature Temperature Source Temporal Pulse Rate 79 Respiratory Rate Blood Pressure 129/77 H BP Systolic 129 BP Diastolic 77 Pulse Ox 07/24/24 07:18 07/24/24 07:18 Temperature 96.9 F L Temperature Source Pulse Rate Respiratory Rate 16 Blood Pressure BP Systolic BP Diastolic Pulse Ox Weight Weight: 214 lb 3.2 oz Body Mass Index (BMI) 35.6 Labs Labs Labs: Blood Type A NEGATIVE Antibody Screen NEGATIVE Hct 31.8 % (37-47) L Hgb 10.5 g/dL (12.0-15.0) L Obstetrics Ultrasound Syphilis Total Ab Non-reactive Rubella IgG Antibody Reactive (Nonreactive) Hep Bs Antigen Non-Reactive (Nonreactive) Hepatitis C Antibody Non-Reactive (Nonreactive) Chlamydia DNA (SAI) Negative (Negative) N.gonorrhoeae DNA (SAI) Negative (Negative) HIV 1&2 Antibody Non-Reactive (Nonreactive) Glucose 1 Hr 50 gm 108 mg/dL (70-140) Miscellaneous Test Assessment & Plan (1) GBS (group B Streptococcus carrier), +RV culture, currently : COMMENT: PCN in labor (2) External hemorrhoid: COMMENT: failed home treatments, requesting surgical consult (3) Rh negative status during : QUALIFIERS: Trimester: third trimester Qualified Code(s): O26.893 - Other specified related conditions, third trimester; Z67.91 - Unspecified blood type, Rh negative COMMENT: rhogam if bleeding or at 28 weeks. (4) FHx: Down's syndrome: COMMENT: nephew(Sisters son) (5) FH: cystic fibrosis: COMMENT: cousin (6) Supervision of high-risk : QUALIFIERS: Trimester: third trimester Qualified Code(s): O09.93 - Supervision of high risk , unspecified, third trimester COMMENT: PRR , SUREKHA 07/16/24, boy Dequan Hua (7) : QUALIFIERS: Weeks of gestation: 40 weeks Qualified Code(s): Z3A.40 - 40 weeks gestation of COMMENT: LR NIPT, declined carrier and ntd, nl anatomy PLAN: Plan induction of labor overnight with cytotec
--- NOTE | 2024-07-24 09:59 | OB.VAGDELI_ITS ---
Assessment & Plan (1) Vaginal delivery: COMMENT: SM IOL postdates 41 boy shadi Maternal Data Information SUREKHA Calculator Estimated Delivery Date Method Current WG Current Estimate 07/16/24 Ultrasound #1 41w 1d Vaginal Delivery Maternal Presentation Maternal Presentation: see assessment and plan Vaginal Delivery Information Procedure Performed: Spontaneous Vaginal Delivery Surgeon/Practitioner: Harmony Neumann Pre-Procedure Diagnosis: see assessment and plan Post-Procedure Diagnosis: same Type of anesthesia: Epidural Estimated Blood Loss: 200 Findings Description of procedure: Patient began pushing and delivered the head in the KALEY presentation. The head was delivered atraumatically and a loose nuchal cord ?1 was identified and easily reduced over the infant's head. The anterior and posterior shoulders delivered without complication followed by the rest of the and the was placed on the maternal abdomen. Delayed cord clamping was employed for approximately 60 seconds. Cord was clamped and cut and gentle traction was applied to the cord and the placenta delivered spontaneously immediately following it was noted to be intact with three-vessel cord. The perineum and vagina were inspected and was noted to have a second -degree laceration that was repaired in the usual fashion with 3-0 vicryl rapide . EBL was 200. Patient and tolerated delivery well. Presentation: Vertex Placental Delivery Description: Spontaneous Specimen collected: Yes Description of specimen(s) removed: placenta Senior Communications Engineer siphon operator: No Post Vaginal Deli Medications given after delivery: Other (pitocin) Complication Complications: No Multi Select Codes Urinary/Genital Urinary/Genital CPT Codes: 85272 Vaginal Delivery [facility]
--- NOTE | 2024-07-24 10:01 | DCINST_ITS ---
Discharge Instructions Diet Discharge Diet: No restrictions DC O2, CPAP, BIPAP needs Home O2 Discharge instructions: No Dressing / Incision Discharge Activity: Return to Normal Activity, May Not Drive (while taking narcotic pain medications.) and May Shower May resume sexual activity in: 4-6 weeks Dressing / Incision Call your doctor if your incision/area has: Continuous Slow Oozing, Sudden Increased Bleeding, Increased Pain/ Swelling, Increased Redness and Foul Smelling Discharge Follow Up Care Please Follow Up With: Harmony Neumann MD When: Call [phone] to make an appointment with your doctor in 6 weeks. If you had elevated blood pressure or 4th degree laceration, you will need to be seen in 2 weeks. Test Results: Test results from this visit will be discussed in further detail at your follow- up appointment, if applicable. Discharge Plan Admission Admit Date/Time: 07/23/24 19:12 Attending Provider: Harmony Neumann Primary Care Provider: Williams Strickland Discharge Orders/Prescriptions Prescriptions: No Action PNV no.[id number] 400 mcg-35 mg- 25 mg-5 mg tablet,chewable PO hydrocortisone [Proctozone-HC] 2.5 % cream with perineal applicator 1 applic NM QD-BID PRN (Reason: hemorrhoids) Qty: 30 0RF (DME) Hydrocortisone 2.5%/lidocaine 5% suppository (cmpd) Suppository See Rx Instructions .Route Qty: 30 1RF Rx Instructions: insert rectally twice dailiy promethazine 12.5 mg tablet 12.5 mg PO Q6H PRN (Reason: nausea and vomiting) Qty: 10 0RF Referrals / Follow Up: Williams Strickland DO [Primary Care Provider] -
--- NOTE | 2024-07-24 10:18 | NURSING ---
At 0840 when patient was complete, Dr Neumann did not feel an amniotic sac, and the patient had not been ruptured up to this point and no fluid noted on her pads or prior to recieving report at 0715. Planned to have Peds at delivery due to uncertainty of fluid color. After delivery of , there was no amniotic fluid noted by RN and physician. Placenta did not appear to have meconium staining on it. Fluid color left blank on delivery summary note for this reason as there was not any at delivery or prior to. Discussed with Dr. Neumann to document time of rupture at the time patient was found to be complete, 0840 07/24/2024.
[2024-07-24] MEDS: Oxytocin 15 Units/NS 250ml 15 UNITS/250 ML IV.SOLN 83 UNITS IV (10:20)
--- NOTE | 2024-07-24 10:24 | NURSING ---
Today at 0840 when patient was completely dilated, Dr. Neumann noted there was not an amniotic sac and up to this point there was no documented time of rupture of membranes (patient was intact as per previous RN at report at 0715). Pads were all dry from report to time patient was called complete by the Physician. Planned to have peds at delivery due to uncertainty of amniotic fluid color. After delivery of , Dr. Neumann did not visualize any amniotic fluid. The side of placenta was not meconium stained. After discussion plan was to call rupture time at 0840 when she was found to be completely dilated and to document no amniotic fluid (no color was documented as well).
[2024-07-24] MEDS: Rho(D) Immune Globulin 300 MCG (1500 Unit) Syringe IV (20:35)
[2024-07-25 03:09] VITALS: BP 129/89; PULSE 90; RESP 16; TEMP 36.1
[2024-07-25 07:54] VITALS: BP 119/61; PULSE 79; RESP 16; TEMP 36.6; O2SAT 96
[2024-07-25] MEDS: Senna/Docusate Sodium 1 Tablet PO (07:58)
[2024-07-25] MEDS: Acetaminophen 500 MG Tablet 1000 MG PO (07:58)
--- NOTE | 2024-07-25 08:06 | PCM.PN.OB ---
Subjective Subjective Patient doing well without complaints. Tolerating PO. Ambulating and voiding without difficulty. Denies chest pain, shortness of breath, calf pain/swelling, fevers, chills, lightheadedness. Baby is struggling to feed. Objective Data Objective Data Vital Signs: Vital Signs Temp Pulse Resp BP Pulse Ox O2 Del Method 97.9 F 79 16 119/61 96 Room Air 07/25/24 07:54 07/25/24 07:54 07/25/24 07:54 07/25/24 07:54 07/25/24 07:54 07/25/24 07:54 Oxygen Delivery Method Room Air Weight: 214 lb 3.2 oz Body Mass Index (BMI) 35.6 Intake & Output: Intake and Output for Last 24 Hours 07/23/24 07/24/24 07/25/24 23:59 23:59 23:59 Intake Total 3654.00 / 3654.00 Output Total 1800 / 1800 Balance 1854.00 / 1854.00 Lab / Micro Data 07/23/24 20:00 Labs: Laboratory Results - last 24 hr 07/24/24 12:22: Screen NEGATIVE, Baby's Blood Type A POSITIVE, Baby's CHRISTIANE NEGATIVE Physical Exam Const alert and oriented x3 HEENT normocephalic Eyes PERRL Neck full ROM Resp normal respiratory effort GI soft to palpation GI Narrative: FF below U Assessment & Plan (1) Vaginal delivery: COMMENT: SM IOL postdates 41 boy shadi (2) Rh negative status during : QUALIFIERS: Trimester: third trimester Qualified Code(s): O26.893 - Other specified related conditions, third trimester; Z67.91 - Unspecified blood type, Rh negative COMMENT: rhogam if bleeding or at 28 weeks. PLAN: Plan s/p PPD # 1 1. routine post delivery care 2. breast feeding- support given 3. rh negative 4. rubella immune
[2024-07-25] MEDS: Benzocaine/Lanolin/Aloe Vera 85 GM Spray 1 SPRAY TOPICAL (08:13)
[2024-07-25] MEDS: Naproxen 500 MG Tablet PO (14:45)
[2024-07-25 14:51] VITALS: BP 114/94; PULSE 87; RESP 16; TEMP 36.8
[2024-07-25 19:52] VITALS: BP 117/82; PULSE 86; RESP 16; TEMP 36.2; O2SAT 100
[2024-07-26 01:29] VITALS: BP 116/78; PULSE 88; RESP 16; TEMP 36.6; O2SAT 98
[2024-07-26] MEDS: Naproxen 500 MG Tablet PO (07:54)
[2024-07-26] MEDS: Senna/Docusate Sodium 1 Tablet PO (07:56)
[2024-07-26 08:42] VITALS: BP 111/77; PULSE 79; RESP 16; TEMP 35.9; O2SAT 98
--- NOTE | 2024-07-26 09:11 | PCM.PN.CNM ---
Subjective Subjective Patient doing well without complaints. Tolerating PO. Ambulating and voiding without difficulty. Feeding well. Denies chest pain, shortness of breath, calf pain/swelling, fevers, chills, lightheadedness. Objective Data Objective Data Vital Signs: Vital Signs Temp Pulse Resp BP Pulse Ox O2 Del Method 96.7 F L 79 16 111/77 98 Room Air 07/26/24 08:42 07/26/24 08:42 07/26/24 08:42 07/26/24 08:42 07/26/24 08:42 07/26/24 08:42 Oxygen Delivery Method Room Air Weight: 214 lb 3.2 oz Body Mass Index (BMI) 35.6 Intake & Output: Intake and Output for Last 24 Hours 07/24/24 07/25/24 07/26/24 23:59 23:59 23:59 Intake Total 3654.00 / 3654.00 Output Total 1800 / 1800 Balance 1854.00 / 1854.00 Lab / Micro Data 07/23/24 20:00 Physical Exam Const alert and oriented x3 HEENT normocephalic Eyes PERRL Neck full ROM Resp normal respiratory effort GI soft to palpation GI Narrative: FF below U Assessment & Plan (1) Vaginal delivery: COMMENT: SM IOL postdates 41 boy shadi (2) Rh negative status during : QUALIFIERS: Trimester: third trimester Qualified Code(s): O26.893 - Other specified related conditions, third trimester; Z67.91 - Unspecified blood type, Rh negative COMMENT: rhogam if bleeding or at 28 weeks. (3) GBS (group B Streptococcus carrier), +RV culture, currently : COMMENT: PCN in labor PLAN: Plan s/p PPD # 2 1. routine post delivery care 2. breast feeding- support given 3. rh positive 4. rubella immune 5. d/c home today
--- NOTE | 2024-07-26 09:12 | PCM.DC.SUM ---
Providers Date of Admission: 07/23/24 Primary Care Physician: Dr. Williams Strickland DO Reason For Visit: VAGINAL DELIVERY Diagnosis Discharge Diagnosis (1) Vaginal delivery: Status: Acute Code(s): O80 - Encounter for full-term uncomplicated delivery (2) Rh negative status during : Status: Acute Code(s): O26.899 - Other specified related conditions, unspecified trimester; Z67.91 - Unspecified blood type, Rh negative Qualifiers: Trimester: third trimester Qualified Code(s): O26.893 - Other specified related conditions, third trimester; Z67.91 - Unspecified blood type, Rh negative (3) GBS (group B Streptococcus carrier), +RV culture, currently : Status: Acute Code(s): O99.820 - Streptococcus B carrier state complicating Plan s/p PPD # 2 1. routine post delivery care 2. breast feeding- support given 3. rh positive 4. rubella immune 5. d/c home today Medications at Discharge Home Medications PNV 153-[id number] 400 mcg-om3 35 mg-dha 25 mg-epa 5 mg-fish oil chew tablet tab PO 12/15/23 Hydrocortisone 2.5%/lidocaine 5% suppository (cmpd) #30 ea 03/25/24 hydrocortisone 2.5 % topical cream with perineal applicator (Proctozone-HC) 1 applic PA QD-BID PRN hemorrhoids #30 grams 03/25/24 promethazine 12.5 mg tablet 12.5 mg PO Q6H PRN nausea and vomiting #10 tabs 06/03/24 Hospital Course Operations None Procedures None Summary of Care Provided Minutes Spent on Discharge: 15 Hospital Course: s/p IOL for postdates, with routine pp course. Physical Exam Const alert and oriented x3 HEENT normocephalic Eyes PERRL Neck full ROM Resp normal respiratory effort GI soft to palpation GI Narrative: FF below U Weight / BMI Weight Weight: 214 lb 3.2 oz Body Mass Index (BMI) 35.6 ABG / Lab / Microbiology Data 07/23/24 20:00 D/C Instructions Discharge Diet: No restrictions May resume sexual activity in: 4-6 weeks Call your doctor if your incision/area has: Continuous Slow Oozing, Sudden Increased Bleeding, Increased Pain/ Swelling, Increased Redness and Foul Smelling Discharge DC O2, CPAP, BIPAP Needs Home O2 Discharge instructions: No Please Follow Up With: Harmony Neumann MD When: Call [phone] to make an appointment with your doctor in 6 weeks. If you had elevated blood pressure or 4th degree laceration, you will need to be seen in 2 weeks. Meaningful Use Info Meaningful Use Meaningful Use Diagnoses (Choose all that apply): None applicable Ischemic Stroke Statin Dosing Therapy Reference: STATIN DOSE THERAPY REFERENCE: * Patients > 75 years receive moderate or high dose statin therapy. * Patients 75 years or YOUNGER should receive HIGH intensity statin dose unless contraindicated. You will be required to document reason for non-treatment if statin daily dose does not meet guidelines. HIGH DOSE STATIN THERAPY DAILY Atorvastatin > than or = to 40 mg Rosuvastatin > than or = to 20 mg Amlodipine + Atorvastatin > than or = to 2.5/40 mg Ezetimibe + Simvastatin 10/80 mg Simvastatin 80mg Discharge Plan Admission Admit Date/Time: 07/23/24 19:12 Attending Provider: Harmony Neumann Primary Care Provider: Williams Strickland Discharge Orders/Prescriptions Prescriptions: No Action PNV no.[id number] 400 mcg-35 mg- 25 mg-5 mg tablet,chewable PO hydrocortisone [Proctozone-HC] 2.5 % cream with perineal applicator 1 applic PA QD-BID PRN (Reason: hemorrhoids) Qty: 30 0RF (DME) Hydrocortisone 2.5%/lidocaine 5% suppository (cmpd) Suppository See Rx Instructions .Route Qty: 30 1RF Rx Instructions: insert rectally twice dailiy promethazine 12.5 mg tablet 12.5 mg PO Q6H PRN (Reason: nausea and vomiting) Qty: 10 0RF Referrals / Follow Up: Williams Strickland DO [Primary Care Provider] - Disposition Disposition (needs filled in before D/C Order can be placed): Home, Self Care
--- NOTE | 2024-08-01 14:57 | NURSING ---
Follow up phone call made, no answer, voicemail left
== END 2024-07-26 12:25 | disposition home or self-care (01) | DRG 806 ==
PROVIDERS: Admitting Provider Obstetrics & Gynecology; PCP Preventive Medicine Occupational Medicine; Referring Provider Obstetrics & Gynecology; Visit Provider Obstetrics & Gynecology
DX: O48.0 Post-term pregnancy (principal); Z37.0 Single live birth; O22.43 Hemorrhoids in pregnancy, third trimester; O99.824 Streptococcus B carrier state complicating childbirth; O69.81X0 Labor and delivery complicated by cord around neck, without compression, not applicable or unspecified; O70.1 Second degree perineal laceration during delivery; O26.893 Other specified pregnancy related conditions, third trimester; Z67.11 Type A blood, Rh negative; Z3A.41 41 weeks gestation of pregnancy

== ENCOUNTER 2024-10-28 18:08 | Emergency (ER) | payer OTHER, SELFPAY ==
[2024-10-28 18:10] VITALS: BP 137/99; PULSE 91; RESP 13; TEMP 36.6; O2SAT 98; BMI 32.4
[2024-10-28 19:52] LABS: Absolute Lymphocyte Count 1.29 X10^3/uL (0.83-4.51); Absolute Neutrophil Count 2.7 X10^3/uL (2.0-7.7); Basophil# 0.03 X10^3/uL; Basophil% 0.7 % (0-1); Eosinophil# 0.04 X10^3/uL; Eosinophils% 0.9 % (0-5); Hematocrit 38.7 % (37-47); Hemoglobin 13.1 g/dL (12.0-15.0); Lymphocyte # 1.29 X10^3/ul (0.83-4.51); Lymphocyte % 29.1 % (19-41); Mean Corp Hgb Conc 33.9 g/dL (32-36); Mean Corpuscular Volume 82.7 fL (81-99); Monocyte# 0.36 X10^3/uL; Monocyte% 8.1 % (0-10); NRBC Flagged by Analyzer 0 % (0-5); Neutrophil # 2.71 X10^3/uL (2.7-7.7); Platelet Count 212 K/mm3 (150-450); RBC Distribution Width SD 38.6 fl (35.1-43.9); Red Blood Count 4.68 M/mm3 (4.2-5.4); White Blood Count 4.4 K/mm3 (4.4-11.0)
[2024-10-28 19:59] VITALS: BP 140/106; PULSE 93; RESP 18; O2SAT 99
[2024-10-28 20:14] LABS: Internal QC Validated? YES +Cl - CLEAR BKGD; Pregnancy, Serum, hCG Quali. NEGATIVE Negative
--- NOTE | 2024-10-28 20:16 | EDS_ITS ---
HPI <STEVO Morris - Last Filed: 10/28/24 21:52> HPI - Female History of Present Illness Chief Complaint: Female C/O Narrative Narrative: 24-year-old female had a Geena IUD placed on October 18 at [facility]. Around October 23 she developed nausea and periumbilical abdominal pain. She has also has had a headache and had a low-grade fever of 99. She called the office and they advised she come in to be checked out. She started her menses the day the IUD was placed and states she is still having light vaginal bleeding that is alternating from bright red to brown. This is a little longer than her typical menstrual cycle. She has no vaginal discharge, dysuria, or frequency. She has normal bowel movements. No abdominal surgical history. [facility] <STEVO Morris - Last Filed: 10/28/24 21:52> [facility] Medical History Contraceptive management Rh negative status during Hypertension Non-smoker Uterine mass Abnormal uterine bleeding Home Medications ?Medication ?Instructions ?Recorded ?Last Taken ?Type NK 09/12/24 Unknown History Allergy/AdvReac Type Severity Reaction Status Date / Time acetaminophen (From Vicodin) AdvReac Intermediate Nausea/Vom/ Verified 10/28/24 18:13 Diarrhea hydrocodone (From Vicodin) AdvReac Intermediate Nausea/Vom/ Verified 10/28/24 18:13 Diarrhea Family History Sister PCOS (polycystic ovarian syndrome) Surgical History Status post dilation and curettage [place] teeth extracted Status post hysteroscopy (~07/25/23) History of hemorrhoidectomy History of tonsillectomy Social History adopted: No household members: significant other housing: house number of children: 1 current occupational status: employed current occupation: [employer] in [place] current occupational exposures/hazards: No pets and animals: Yes (Avoid litterbox) pets and animals: cat(s) and dog(s) history of recent travel: No sexually active: Yes Smoking Status: Never smoker alcohol intake: never substance use type: does not use well-balanced diet: daily or most days caffeine: No eating out: 1-3 times/week during the past year weight has: remained stable what type of physical activity do you participate in: none jarrell/quaker: [employer] seatbelt use: always do you feel safe at home: Yes additional social history: Javid Significant other ROS <STEVO Morris - Last Filed: 10/28/24 21:52> ROS ED ROS Narrative Constitutional: Negative for fever, chills. Respiratory: Negative for shortness of breath, cough. GI: Positive for abdominal pain, nausea. Negative for vomiting, diarrhea, constipation, melena, hematochezia. : Negative for dysuria, hematuria or frequency. EXAM <STEVO Morris - Last Filed: 10/28/24 21:52> Physical Exam Narrative Exam Narrative: CONST: Patient sitting in no acute distress. EYES: Normal inspection. NECK: Normal inspection. RESP: No respiratory distress, CTAB. CVS: Regular rate and rhythm, no murmur, no gallop. ABD: Soft with periumbilical tenderness, no lower quadrant or pelvic tenderness, no guarding or rebound, nondistended. SKIN: Color normal, no rash, warm, dry, intact. EXTREMITIES: Normal appearance, no pedal edema. NEURO: Alert and answering questions appropriately. PSYCH: Normal affect. Const Vital Signs: 10/28/24 18:10 10/28/24 19:59 10/28/24 21:00 Temperature 98 F Temperature Source Oral Pulse Rate 91 93 77 Respiratory Rate 13 18 18 Blood Pressure 137/99 H 140/106 H 137/98 H Blood Pressure Mean 111 117 111 Pulse Ox 98 99 98 Oxygen Delivery Method Room Air Room Air Room Air <Dr. Jeremy Thomas MD - Last Filed: 10/28/24 22:49> Physical Exam Const Vital Signs: 10/28/24 18:10 10/28/24 19:59 10/28/24 21:00 Temperature 98 F Temperature Source Oral Pulse Rate 91 93 77 Respiratory Rate 13 18 18 Blood Pressure 137/99 H 140/106 H 137/98 H Blood Pressure Mean 111 117 111 Pulse Ox 98 99 98 Oxygen Delivery Method Room Air Room Air Room Air MDM <STEVO Morris - Last Filed: 10/28/24 21:52> MDM MDM Narrative Medical decision making narrative: 24-year-old female recently had an IUD placed. Several days later she developed periumbilical abdominal pain which has been going on for about 6 days. She has nausea without vomiting. No dysuria or vaginal bleeding or discharge. She appears well and nontoxic. Afebrile and hemodynamically stable. Abdominal exam is benign. CBC, CMP, lipase all unremarkable. Serum is negative. Urinalysis has 25 leukocyte esterase, 5-10 WBCs, and 2+ bacteria but is contaminated with 5-10 epithelial cells. She has no urinary symptoms so we will hold off on antibiotics and send a culture. CT is pending. I have personally performed a face to face assessment of the patient and have reviewed the MOE Note. I performed a substantive portion of the visit including all aspects of the following. My mitchell findings include: History is 24-year-old female with periumbilical abdominal pain for about 6 days started last Monday. Nausea no vomiting. No dysuria. No vaginal bleeding or discharge. Recently had IUD placed. No prior abdominal surgeries. Exam is [well-appearing 24-year-old female. Vital signs stable afebrile. H EENT exam unremarkable. Lungs clear. Heart regular rhythm. Rate about 90. Chest wall ribs nontender. Abdomen soft nondistended normal bowel sounds without peritoneal signs. Minimal periumbilical tenderness. No rebound guarding rigidity. Right upper right lower quadrant unremarkable. No hernia or mass. No obstruction. Moving all 4 extremities. Nontender no edema. Back nontender. Neurologically awake alert.] Medical Decision Making [24-year-old Fery male periumbilical abdominal pain. Differential would include UTI atypical appendicitis but clinically and by exam this is not appendicitis. Is not a bowel obstruction. Unlikely to be . Clinically does not seem to be pancreatitis or gallbladder disease. Labs are unremarkable we are going obtain a CAT scan due to the her having this discomfort for 6 days.] Other additions or changes: [None] Lab Data Labs: Laboratory Results - last 24 hr 10/28/24 10/28/24 19:39 20:04 WBC 4.4 RBC 4.68 Hgb 13.1 Hct 38.7 MCV 82.7 MCH 28.0 MCHC 33.9 RDW Std Deviation 38.6 RDW Coeff of Gale 13.0 Plt Count 212 MPV 10.0 Immature Gran % (Auto) 0.200 Neut % (Auto) 61.0 Lymph % (Auto) 29.1 [place] % (Auto) 8.1 Eos % (Auto) 0.9 Baso % (Auto) 0.7 Absolute Neuts (auto) 2.7 Absolute Lymphs (auto) 1.29 Nucleated RBC % 0 Sodium 138 Potassium 3.4 Chloride 106 Carbon Dioxide 22.9 Anion Gap 9 BUN 10 Creatinine 0.69 L Estim Creat Clear Calc 135.72 Est GFR (MDRD) Non-Af 123 BUN/Creatinine Ratio 15.2 Glucose 99 Calcium 8.7 Total Bilirubin 0.23 AST 22 ALT 10 Alkaline Phosphatase 110 H Total Protein 6.7 Albumin 4.2 Globulin 2.6 Albumin/Globulin Ratio 1.6 Lipase 30 Serum , Qual NEGATIVE Urine Color Yellow Urine Clarity Clear Urine pH 6.0 Ur Specific [place] 1.020 Urine Protein 30 H Urine Glucose (UA) Normal Urine Ketones Negative Urine Occult Blood 150 H Urine Nitrite Negative Urine Bilirubin Negative Urine Urobilinogen Normal Ur Leukocyte Esterase 25 H Urine RBC 0-5 SEEN Urine WBC 5-10 SEEN Ur Squamous Epith Cells 5-10 SEEN Urine Bacteria 2+ Urine Mucus 1+ Radiography Diagnostic Testing: Clinical Impression(s) from Imaging Studies Abdomen/Pelvis CT 10/28/24 21:40 IMPRESSION: An intrauterine device appears in place. No inflammatory changes of the bowel loops. Mild stool burden within the large bowel. 8 mm right lower lobe pulmonary nodule. CT of the chest may be obtained in 6 to 12 months. Reading Location: [facility] <Dr. Jeremy Thomas MD - Last Filed: 10/28/24 22:49> [facility] Narrative Medical decision making narrative: 24-year-old female recently had an IUD placed. Several days later she developed periumbilical abdominal pain which has been going on for about 6 days. She has nausea without vomiting. No dysuria or vaginal bleeding or discharge. She appears well and nontoxic. Afebrile and hemodynamically stable. Abdominal exam is benign. CBC, CMP, lipase all unremarkable. Serum is negative. Urinalysis has 25 leukocyte esterase, 5-10 WBCs, and 2+ bacteria but is contaminated with 5-10 epithelial cells. She has no urinary symptoms so we will hold off on antibiotics and send a culture. CT is pending. I have personally performed a face to face assessment of the patient and have reviewed the MOE Note. I performed a substantive portion of the visit including all aspects of the following. My mitchell findings include: History is 24-year-old female with periumbilical abdominal pain for about 6 days started last Monday. Nausea no vomiting. No dysuria. No vaginal bleeding or discharge. Recently had IUD placed. No prior abdominal surgeries. Exam is [well-appearing 24-year-old female. Vital signs stable afebrile. H EENT exam unremarkable. Lungs clear. Heart regular rhythm. Rate about 90. Chest wall ribs nontender. Abdomen soft nondistended normal bowel sounds wit hout peritoneal signs. Minimal periumbilical tenderness. No rebound guarding rigidity. Right upper right lower quadrant unremarkable. No hernia or mass. No obstruction. Moving all 4 extremities. Nontender no edema. Back nontender. Neurologically awake alert.] Medical Decision Making [24-year-old Female periumbilical abdominal pain. Differential would include UTI atypical appendicitis but clinically and by exam this is not appendicitis. Is not a bowel obstruction. Unlikely to be . Clinically does not seem to be pancreatitis or gallbladder disease. Labs are unremarkable we are going obtain a CAT scan due to the her having this discomfort for 6 days.] Other additions or changes: [Repeat exam at 10 PM patient is doing well. Abdomen is benign. We are awaiting the CT results. I did review with I do not see any significant abnormality. Awaiting formal radiology interpretation.] Repeat exam patient doing well at 10:48 PM. Abdomen benign. Went over CAT scan results which was unremarkable. Should be discharged home abdominal pain uncertain etiology. History & Record Review Discussion w/independent historian: Patient Lab Data Attestation: I reviewed the patient's lab results. Lab results narrative: CBC normal. White count of 4. H&H 13 and 38. Platelets 212. Electrolytes unremarkable gap 9. BUN and creatinine 10 and 0.6. Glucose 99. Liver enzymes unremarkable. Serum test negative. Will lipase normal at 30. UA shows occult blood waiting on the micro. Awaiting CT. Labs: Laboratory Results - last 24 hr 10/28/24 10/28/24 19:39 20:04 WBC 4.4 RBC 4.68 Hgb 13.1 Hct 38.7 MCV 82.7 MCH 28.0 MCHC 33.9 RDW Std Deviation 38.6 RDW Coeff of Gale 13.0 Plt Count 212 MPV 10.0 Immature Gran % (Auto) 0.200 Neut % (Auto) 61.0 Lymph % (Auto) 29.1 [place] % (Auto) 8.1 Eos % (Auto) 0.9 Baso % (Auto) 0.7 Absolute Neuts (auto) 2.7 Absolute Lymphs (auto) 1.29 Nucleated RBC % 0 Sodium 138 Potassium 3.4 Chloride 106 Carbon Dioxide 22.9 Anion Gap 9 BUN 10 Creatinine 0.69 L Estim Creat Clear Calc 135.72 Est GFR (MDRD) Non-Af 123 BUN/Creatinine Ratio 15.2 Glucose 99 Calcium 8.7 Total Bilirubin 0.23 AST 22 ALT 10 Alkaline Phosphatase 110 H Total Protein 6.7 Albumin 4.2 Globulin 2.6 Albumin/Globulin Ratio 1.6 Lipase 30 Serum , Qual NEGATIVE Urine Color Yellow Urine Clarity Clear Urine pH 6.0 Ur Specific [place] 1.020 Urine Protein 30 H Urine Glucose (UA) Normal Urine Ketones Negative Urine Occult Blood 150 H Urine Nitrite Negative Urine Bilirubin Negative Urine Urobilinogen Normal Ur Leukocyte Esterase 25 H Urine RBC 0-5 SEEN Urine WBC 5-10 SEEN Ur Squamous Epith Cells 5-10 SEEN Urine Bacteria 2+ Urine Mucus 1+ Radiography Diagnostic Testing: Clinical Impression(s) from Imaging Studies Abdomen/Pelvis CT 10/28/24 21:40 IMPRESSION: An intrauterine device appears in place. No inflammatory changes of the bowel loops. Mild stool burden within the large bowel. 8 mm right lower lobe pulmonary nodule. CT of the chest may be obtained in 6 to 12 months. Reading Location: [facility] Discharge Plan Triage Chief Complaint: Female C/O ED Midlevel Provider: Ange Arenas ED Provider: Jeremy Thomas Dx/Rx/DC Orders Clinical Impression: Abdominal pain, IUD (intrauterine device) in place Instructions: Abdominal Pain Prescriptions: No Action NK Primary Care Provider: Williams Strickland Referrals: Williams Strickland DO [Primary Care Provider] - 3-5 Days if not improving Activity Restrictions/Additional Instructions: Your labs and CAT scan look good. Your IUD is in place. There is no acute cause for your pain. Motrin Tylenol for pain as needed. Follow-up with your doctor if not improving. Print Language: Icelandic Disposition Disposition: Home, Self Care
[2024-10-28] MEDS: Ketorolac 15 MG/ML Vial IV (20:21)
[2024-10-28 20:23] LABS: ALB/GLOB Ratio 1.6 RATIO (0.9-2.4); AST(SGOT) 22 U/L (<=31); Alanine Aminotransfer ALT/SGPT 10 U/L (<=34); Albumin, Serum 4.2 g/dL (3.5-5.0); Alkaline Phosphatase 110 U/L (35-104); Anion Gap 9 (5-15); BUN 10 mg/dL (4-19); BUN/Creat Ratio 15.2 RATIO (10-20); Calcium,Total 8.7 mg/dL (7.6-11.0); Carbon Dioxide 22.9 mmol/L (21.0-32.0); Chloride 106 mmol/L (98-108); Creatinine, Serum 0.69 mg/dL (0.70-1.20); EST Glomerular Filtration Rate 123 (>60); Estimated Creatinine Clearance 135.72 ml/min (50-250); Globulin 2.6 g/dL (2.2-4.2); Glucose 99 mg/dL (70-99); Potassium 3.4 mmol/L (3.3-5.1); Protein, Total 6.7 g/dL (5.9-8.4); Sodium Level 138 mmol/L (133-145); Total Bilirubin 0.23 mg/dL (0.00-1.30)
[2024-10-28 20:24] LABS: Lipase 30 U/L (13-75)
[2024-10-28 20:50] LABS: Color, Urine Yellow (Yellow); Glucose, Dipstick Normal (Normal); Ketone-Dipstick Negative (Negative); Leukocyte Esterase-Dipstick 25 /ul (Negative); Nitrite-Dipstick Negative (Negative); Occult Blood-Urine 150 /ul (Negative); Protein-Dipstick 30 mg/dl (Negative); Urine Bilirubin Dipstick Negative (Negative); Urine Clarity Clear (Clear); Urine Urobilinogen Normal (Normal)
[2024-10-28 21:00] VITALS: BP 137/98; PULSE 77; RESP 18; O2SAT 98
[2024-10-28 21:06] LABS: Red Blood Cells-Urine 0-5 SEEN /hpf (0-5); White Blood Cells 5-10 SEEN /hpf (0-5)
[2024-10-28 21:07] LABS: Bacteria 2+ /hpf (None Seen); Squamous Epithelial Cells - UA 5-10 SEEN /hpf (5-10)
[2024-10-28 21:08] LABS: Mucous, Urine 1+ /hpf (<or=2+)
--- NOTE | 2024-10-28 21:40 | CT_ITS ---
PROCEDURE: ABDOMEN/PELVIS W IV CONT ONLY 10/28/2024 REASON FOR EXAM: GENERALIZED PAIN TECHNIQUE: Abdomen and pelvis CT with intravenous contrast. Coronal and Sagittal reconstruction series were provided. PATIENT PREPARATION: Per protocol ORAL CONTRAST TYPE: None. AMOUNT: mL CONTRAST: Not provided VOLUME: Not provided mL Not Provided Gauge IV One or more dose reduction techniques were used (e.g., Automated exposure control, adjustment of the mA and/or kV according to patient size, use of iterative reconstruction technique. RADIATION DOSE SUMMARY: CTDlvol: 30 mGy DLP: 975 mGycm COMPARISON: None FINDINGS: Lung bases: 8 mm right lower lobe pulmonary nodule. No focal consolidation. Liver: Normal size. No mass. Gallbladder: Unremarkable Spleen: Normal size. Pancreas: Normal size without evidence of mass surrounding inflammation or ductal dilation. Adrenals: Unremarkable Kidneys: Normal renal sizes. No hydronephrosis. Small left renal cysts. Likely representing benign cysts. No follow-up is recommended. Bladder: Unremarkable Reproductive Organs: An intrauterine device is demonstrated. Bowel: Evaluation of the bowel loops are limited due to lack of oral contrast. No inflammatory changes of the bowel loops. Mild stool burden within the large bowel. Appendix: Unremarkable Lymph nodes: Prominent right lower quadrant mesenteric lymph node. Vasculature: Unremarkable Peritoneum / Retroperitoneum: No free air or free fluid. Bones: Unremarkable CT/Abdomen/Pelvis W IV Cont ONLY IMPRESSION: An intrauterine device appears in place. No inflammatory changes of the bowel loops. Mild stool burden within the large bowel. 8 mm right lower lobe pulmonary nodule. CT of the chest may be obtained in 6 t o 12 months. Reading Location: [facility]
[2024-10-28 23:15] VITALS: BP 125/91; PULSE 78; RESP 16; TEMP 36.6; O2SAT 99
== END 2024-10-28 23:16 | disposition home or self-care (01) ==
PROVIDERS: Physician Assistant; Emergency Provider Emergency Medicine; PCP Preventive Medicine Occupational Medicine; Visit Provider Emergency Medicine
DX: R10.33 Periumbilical pain (principal); R51.9 Headache, unspecified; R11.0 Nausea; R50.9 Fever, unspecified; I10 Essential (primary) hypertension; Z97.5 Presence of (intrauterine) contraceptive device
CPT/HCPCS: 74177; 80053; 81001; 83690; 84703; 85025; 87086; 87088; 96374; 99282; A4216